=== PATIENT | male | born 1950 | race African-American/Black ===

== ENCOUNTER 2023-05-01 12:41 | Outpatient (AMB) | payer MEDICARE, OTHER, SELFPAY ==
--- NOTE | 2023-05-01 12:59 | MHC.PC.OV ---
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: No Allergies house dust Allergy (Mild, Verified 05/01/23 13:37) Itching bees Allergy (Intermediate, Uncoded 05/01/23 13:37) Itching pollen Allergy (Intermediate, Uncoded 05/01/23 13:37) Itching Medication List - Last Reconciled 05/01/23 by Angelita Olsen MD atenolol 50 mg PO DAILY epinephrine 0.3 mg IM ONCE PRN finasteride 5 mg PO DAILY nifedipine ER 90 mg PO DAILY tamsulosin 0.8 mg PO DAILY Tobacco use date assessed: 05/01/23 Fall risk assessment: No Falls in past year Last assessed Fall Risk: 05/01/23 Dental Screening Dental Screen Date: 05/01/23 Did you have a dental visit in the last 12 months?: Yes Did you have a dental problem in the last 6 months where you did not have access to dental care?: No Was dental information given to patient?: Patient has dentist 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 lives in [place]. was in [place] for years .bloating sensation , diverticulosis, hiatal hernia, esophageal narrowing. had blood work 04/2023 . complains of L leg having L foot numbness ? levaquin. . Hx of Lumbar and L hip MRI-? bulging disc, noted high TG. [facility] Medical History (Updated 05/01/23 @ 14:30 by Angelita Olsen MD) Diverticulosis Perforated appendix Social History Housing: Condominium Patient Tobacco Use Status: Current everyday Tobacco user Cigarette Packs Per Day: 0.5 service: No Current occupational status: retired Cognitive needs: No Hearing needs: No Vision needs: No Questionnaire PHQ-9 Over the last 2 weeks, how often have you been bothered by any of the following problems? 1. Little interest or pleasure in doing things: not at all 2. Feeling down, depressed, or hopeless: not at all 3. Trouble falling or staying asleep, or sleeping too much: not at all 4. Feeling tired or having little energy: not at all 5. Poor appetite or overeating: not at all 6. Feeling bad about yourself - or that you are a failure or have let yourself or your family down: not at all 7. Trouble concentrating on things, such as reading the newspaper or watching television: not at all 8. Moving or speaking so slowly that other people could have noticed. Or the opposite - being so fidgety or restless that you have been moving around a lot more than usual: not at all 9. Thoughts that you would be better off or of hurting yourself in some way: not at all Total score: 0 Depression Screening Interpretation: Negative Source: Developed by Drs. Sirnivas Moody, Angely Knox, Bryn Willard and colleagues, with an educational jose from [employer]. Thrive Questionnaire Date Thrive assessed: 05/01/23 I am a: Patient What is your living situation today?: I have a steady place to live Within the past 12 months, did the food you bought not last and you didn't have the money to get more?: Never true Within the past 12 months, did you worry whether your food would run out before you got money to buy more?: Never true Do you have trouble paying for medicines?: No Do you have trouble getting transportation to medical appointments?: No Do you have trouble paying your heating and electricity bill?: No Do you have trouble taking care of your child, family member or friend?: No Do you have trouble with day-to-day activities such as bathing, preparing meals, shopping, managing finances, etc.?: No Are you currently unemployed and looking for a job?: No Are you interested in more education?: No AUDIT C Alcohol Use Questionnaire (AUDIT-C) 1. How often do you have a drink containing alcohol?: 2-3 times a week 2. How many drinks containing alcohol do you have on a typical day when you are drinking?: 1 or 2 3. How often do you have six or more drinks on one occasion?: Never Total Score: 3 ERENDIRA-7 AMB Questionnaire ERENDIRA-7 Date ERENDIRA - 7 assessed: 09/08/23 Feeling nervous, anxious, or on edge: 0 = Not at all Not being able to stop or control worryin = Not at all Worrying too much about different things: 0 = Not at all Trouble relaxin = Not at all Being so restless that it is hard to sit still: 0 = Not at all Becoming easily annoyed or irritable: 0 = Not at all Feeling afraid as if something awful might happen: 0 = Not at all Total ERENDIRA-7 score (0-4 normal; 5-9 mild; 10-14 moderate; 15-21 severe): 0 Source: Developed by Drs. Srinivas Moody, Angely Knox, Bryn Willard and colleagues, with an educational jose from [employer]. Physical exam (Primary Care) Vital Signs: Last Vital Signs Pulse 66 05/01/23 13:01 BP 130/72 05/01/23 13:01 Pulse Ox 100 05/01/23 13:01 Oxygen Delivery Method Room Air 05/01/23 13:01 BMI result Body Mass Index 29.3 Tobacco/Smoking Status: Tobacco use Status Tobacco use date assessed 05/01/23 05/01/23 13:01 Patient Tobacco Use Status Current everyday Tobacco 05/01/23 13:47 PHQ-9: PHQ-9 Score PHQ-9: Total score 0 05/01/23 13:47 Depression Screening Interpretation: Negative Thrive Assessment: Date of Thrive Assessment Date Thrive assessed 05/01/23 05/01/23 13:01 Const General: alert; No acute distress Eyes Conjunctivae: conjunctivae normal Resp Auscultation: clear to auscultation bilaterally Cardio Rate: regular rate Rhythm: regular rhythm GI Inspection: Yes normal to inspection Extrem General: Yes normal to inspection and No edema Assessment and Plan Assessment & Plan (1) Hypertension: Code(s): I10 - Essential (primary) hypertension Plan: Continue with blood pressure medication. Decrease salt intake and exercise continue with atenolol 50 mg once a day nifedipine 90 mg once a day (2) Overweight (BMI 25.0-29.9): Code(s): E66.3 - Overweight Plan: Diet and exercise (3) BPH (benign prostatic hyperplasia): Code(s): N40.0 - Benign prostatic hyperplasia without lower urinary tract symptoms Plan: Continue with finasteride and tamsulosin (4) Hiatal hernia: Code(s): K44.9 - Diaphragmatic hernia without obstruction or gangrene (5) Osteoarthritis of left hip: Comment: 06/2022 Code(s): M16.12 - Unilateral primary osteoarthritis, left hip (6) Lumbar degenerative disc disease: Comment: MRI done 06/2022 moderate L neural foraminal narrowing L5-S 1 crowding L L5 nerve root Code(s): M51.36 - Other intervertebral disc degeneration, lumbar region (7) Food allergy: Code(s): Z91.018 - Allergy to other foods (8) Elevated PSA: Code(s): R97.20 - Elevated prostate specific antigen [PSA] (9) Colonoscopy refused: Code(s): Z53.20 - Procedure and treatment not carried out because of patient's decision for unspecified reasons (10) Colon cancer screening: Code(s): Z12.11 - Encounter for screening for malignant neoplasm of colon Orders: Orders Heavy Metals Screen Blood Today Z91.018 - Allergy to other foods Comprehensive Met. Panel Today R97.20 - Elevated prostate specific antigen [PSA] Rast Allergen Today Z91.018 - Allergy to other foods PSA,Total (Free>4and<10) Today R97.20 - Elevated prostate specific antigen [PSA] Thyroid Stimulating Hormone Today R97.20 - Elevated prostate specific antigen [PSA] Free T4 (Free Thyroxine) Today R97.20 - Elevated prostate specific antigen [PSA] XR chest 2V Today I10 - Essential (primary) hypertension Referrals Urology Referral N40.0 - Benign prostatic hyperplasia without lower urinary tract symptoms, R97.20 - Elevated prostate specific antigen [PSA] Cologuard Test Z12.11 - Encounter for screening for malignant neoplasm of colon Medications: New epinephrine 0.3 mg (0.3 mL) IM ONCE PRN 2 ea 0RF anaphylaxis I10 - Essential (primary) hypertension Coding Level of Care Code New Pt Level 4 (64220) Diagnoses Hypertension I10 Overweight (BMI 25.0-29.9) E66.3 BPH (benign prostatic hyperplasia) N40.0 Hiatal hernia K44.9 Osteoarthritis of left hip M16.12 Lumbar degenerative disc disease M51.36 Food allergy Z91.018 Elevated PSA R97.20 Colonoscopy refused Z53.20 Colon cancer screening Z12.11
[2023-05-01 13:01] VITALS: BP 130/72; PULSE 66; O2SAT 100; BMI 29.3
== END 2023-05-01 14:48 | disposition home or self-care (01) ==
PROVIDERS: PCP Internal Medicine; Visit Provider Internal Medicine
DX: I10 Essential (primary) hypertension (principal); E66.3 Overweight; N40.0 Benign prostatic hyperplasia without lower urinary tract symptoms; Z91.018 Allergy to other foods; K44.9 Diaphragmatic hernia without obstruction or gangrene; M16.12 Unilateral primary osteoarthritis, left hip; M51.36 Other intervertebral disc degeneration, lumbar region; R97.20 Elevated prostate specific antigen [PSA]; Z53.20 Procedure and treatment not carried out because of patient's decision for unspecified reasons
CPT/HCPCS: 99204

== ENCOUNTER 2023-06-23 15:31 | Outpatient (AMB) | payer MEDICARE, OTHER, SELFPAY ==
--- NOTE | 2023-06-23 15:38 | A.OFFVIS_ITS ---
Intake Vital Signs 06/23/23 15:42 Height 5 ft 11 in Weight 212 lb BMI 29.6 BP 157/67 H Blood Pressure Location Lt brachial Position Sitting Pulse 60 Intake Visit Reasons: Other fecal abnormalities Intake Note: Patient new consult for other Fecal abnormalities. Pre Colonoscopy screening ??? Patient cc: constipation, abdominal bloating and some GERD. Cologuard was with blood. Patient was dx with Diverticulosis. 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 male here today for pre col onoscopy screening.? Patient was sent to us by his PCP.? Patient reports that he had colonoscopy in his 50s. Patient reports he did not had a great experience, prefers not to go for colonoscopy. However patient did have positive Cologuard. Reports to have multiple symptoms. Patient has postprandial abdominal bloating. Occasional constipation. Reports to have blood in the stool as well. Patient reports postprandial abdominal bloating specially when he eats peppers, onions. Denies history of gastrointestinal disease, colon polyps, or cancer.? Denies history of difficulty with sedation or anesthesia in the past.? Negative for history of sleep apnea.? Denies any history of cardiac, renal, pulmonary, or hepatic disease.?? No history of infectious? diseases like hepatitis A, B, C, HIV or tuberculosis.? Patient is not on any anticoagulation therapy. [facility] Medical History (Updated 05/18/23 @ 19:34 by Angelita Olsen MD) Diverticulosis Perforated appendix [facility] Patient Tobacco Use Status: Current everyday Tobacco user Cigarette Packs Per Day: 0.5 service: No Current occupational status: retired Cognitive needs: No Hearing needs: No Vision needs: No Review of Systems Const Denies weight gain and Denies weight loss ENT Reports no additional complaints, Denies dysphagia and Denies odynophagia Card Reports no additional complaints Resp Reports no additional complaints GI Denies abdominal pain, Denies belching, Denies melena, Reports bloating (Postprandial), Reports hematochezia, Denies change in bowel habits, Reports constipation, Denies dysphagia, Denies excessive flatus, Denies dyspepsia, R eports heartburn (Occasional), Denies diarrhea, Denies loose stools, Denies nausea, Denies odynophagia and Denies vomiting Reports no additional complaints Musc Reports no additional complaints Neuro Reports no additional complaints Psych Reports no additional complaints Endo Reports no additional complaints Physical Exam Vital Signs: Last Vital Signs Pulse 60 06/23/23 15:42 BP 157/67 H 06/23/23 15:42 BMI result Body Mass Index 29.6 Assessment & Plan Assessment & Plan (1) Positive colorectal cancer screening using Cologuard test: Code(s): R19.5 - Other fecal abnormalities (2) Colon cancer screening: Code(s): Z12.11 - Encounter for screening for malignant neoplasm of colon (3) Colonoscopy refused: Code(s): Z53.20 - Procedure and treatment not carried out because of patient's decision for unspecified reasons (4) Rectal bleed: Code(s): K62.5 - Hemorrhage of anus and rectum (5) Diverticulosis: Code(s): K57.90 - Diverticulosis of intestine, part unspecified, without perforation or abscess without bleeding (6) Constipation: Code(s): K59.00 - Constipation, unspecified Qualifiers: Constipation type: slow transit constipation Qualified Code(s): K59.01 - Slow transit constipation Plan Patient will going get blood work done. Will check iron profile, vitamin B12 and folate as well as vitamin-D levels. Patient will start taking MiraLax and Colace. Can use Proctosol as needed. Discussed with patient the importance of colorectal screening. Patient had positive Cologuard because he has blood in his stools. Long discussion with patient about going for colonoscopy. Patient does admit that he had unpleasant experience when he had his colonoscopy in his 50s. Patient reports that he will think about going for colonoscopy. Postpra ndial abdominal bloating with certain food. Low FODMAP diet discussed with patient. List of food recommended as well as list of food to avoid given to patient. I will see patient in 5 months, sooner on as needed basis. He is agreeable to this plan and verbalizes understanding of instructions. He was given the opportunity to ask questions and all questions answered. Thank you for allowing me to participate in his care Orders: Orders IRON PROFILE Today D64.9 - Anemia, unspecified Vitamin B12 and Folate Today R19.7 - Diarrhea, unspecified Vitamin D 25-OH (D2 and D3) Today E55.9 - Vitamin D deficiency, unspecified Medications: New polyethylene glycol 3350 (Miralax) 17 grams PO DAILY 510 grams 2RF hydrocortisone 2.5% (Proctosol HC) 1 appl UT BID-QID PRN 30 grams 2RF hemorrhoids K64.9 - Unspecified hemorrhoids docusate sodium 100 mg PO DAILY 30 caps 3RF K59.00 - Constipation, unspecified Coding Level of Care Code New Pt Level 4 (65030) Diagnoses Positive colorectal cancer screening using Cologuard test R19.5 Colon cancer screening Z12.11 Colonoscopy refused Z53.20 Rectal bleed K62.5 Diverticulosis K57.90 Slow transit constipation K59.01 Constipation type: slow transit constipation Time Spent (min) 45 Comment 30 minutes spent with patient and additional 15 minutes spent reviewing his records
[2023-06-23 15:42] VITALS: BP 157/67; PULSE 60; BMI 29.6
== END 2023-06-23 16:26 | disposition home or self-care (01) ==
PROVIDERS: PCP Internal Medicine; Visit Provider Nurse Practitioner Family
DX: R19.5 Other fecal abnormalities (principal); Z12.11 Encounter for screening for malignant neoplasm of colon; Z53.20 Procedure and treatment not carried out because of patient's decision for unspecified reasons; K62.5 Hemorrhage of anus and rectum; K57.90 Diverticulosis of intestine, part unspecified, without perforation or abscess without bleeding; K59.01 Slow transit constipation
CPT/HCPCS: 99204

== ENCOUNTER → 2023-06-23 15:31 | Outpatient (BNVA) | payer MEDICARE, OTHER, SELFPAY | PROVIDERS: PCP Internal Medicine; Visit Provider Nurse Practitioner Family | DX: Z12.11 Encounter for screening for malignant neoplasm of colon (principal); Z53.20 Procedure and treatment not carried out because of patient's decision for unspecified reasons; K62.5 Hemorrhage of anus and rectum; K57.90 Diverticulosis of intestine, part unspecified, without perforation or abscess without bleeding; K59.01 Slow transit constipation; R19.5 Other fecal abnormalities | CPT/HCPCS: 99202 ==

== ENCOUNTER 2023-08-03 15:25 | Outpatient (AMB) | payer MEDICARE, OTHER, SELFPAY ==
--- NOTE | 2023-08-03 15:26 | A.OFFPC_ITS ---
Intake Visit Reasons: Cold Symptoms Allergies house dust Allergy (Mild, Verified 08/03/23 15:26) Itching bees Allergy (Intermediate, Uncoded 08/03/23 15:26) Itching pollen Allergy (Intermediate, Uncoded 08/03/23 15:26) Itching Tobacco use date assessed: 05/01/23 Fall risk assessment: No Falls in past year Last assessed Fall Risk: 08/03/23 Dental Screening Dental Screen Date: 08/03/23 Did you have a dental visit in the last 12 months?: No Did you have a dental problem in the last 6 months where you did not have access to dental care?: No Was dental information given to patient?: Patient has dentist HPI Cold Symptoms HPI Details 72-year-old overweight male with hyperte nsion BPH lumbar degenerative disc disease calling for an acute problem review of the notes follow us up with urology for markedly elevated PSA stable MRI was not stable. cough, chills, 3 days, no sore throat, takes mucinex, , no sinus problem states last year also patient was treated for bronchitis and was given steroids. Discussed with the patient that I do not like giving steroids as this suppresses the immune system [facility] Medical History (Updated 08/03/23 @ 19:12 by Angelita Olsen MD) Diverticulosis Perforated appendix Social History Housing: Condominium Patient Tobacco Use Status: Current everyday Tobacco user Tobacco use type: Cigarette Cigarette Packs Per Day: 0.5 e-Cigarette/Vaping Use: Never Used Second Hand Smoke Exposure: Yes service: No Current occupational status: retired Cognitive needs: No Hearing needs: No Vision needs: No Questionnaire PHQ-9 Over the last 2 weeks, how often have you been bothered by any of the following problems? 1. Little interest or pleasure in doing things: not at all 2. Feeling down, depressed, or hopeless: not at all 3. Trouble falling or staying asleep, or sleeping too much: not at all 4. Feeling tired or having little energy: not at all 5. Poor appetite or overeating: not at all 6. Feeling bad about yourself - or that you are a failure or have let yourself or your family down: not at all 7. Trouble concentrating on things, such as reading the newspaper or watching television: not at all 8. Moving or speaking so slowly that other people could have noticed. Or the opposite - being so fidgety or restless that you have been moving around a lot more than usual: not at all 9. Thoughts that you would be better off or of hurting yourself in some way: not at all Total score: 0 Depression Screening Interpretation: Negative Depression Screening Done: Yes Source: Developed by Drs. Srinivas Moody, Angely Knox, Bryn Willard and colleagues, with an educational jose from [employer]. Thrive Questionnaire Date Thrive assessed: 05/01/23 AUDIT C Alcohol Use Questionnaire (AUDIT-C) 1. How often do you have a drink containing alcohol?: 2-3 times a week 2. How many drinks containing alcohol do you have on a typical day when you are drinking?: 1 or 2 3. How often do you have six or more drinks on one occasion?: Never Total Score: 3 ERENDIRA-7 AMB Questionnaire ERENDIRA-7 Date ERENDRIA - 7 assessed: 05/01/23 Source: Developed by Drs. Srinivas Moody, Angely Knox, Bryn Willard and colleagues, with an educational jose from [employer]. Physical exam (Primary Care) Tobacco/Smoking Status: Tobacco use Status Tobacco use date assessed 05/01/23 08/03/23 15:27 Patient Tobacco Use Status Current everyday Tobacco 08/03/23 15:27 Tobacco use type Cigarette 08/03/23 15:27 e-Cigarette/Vaping Use Never Used 08/03/23 15:27 PHQ-9: PHQ-9 Score PHQ-9: Total score 0 08/03/23 15:27 Depression Screening Interpretation: Negative Thrive Assessment: Date of Thrive Assessment Date Thrive assessed 05/01/23 08/03/23 15:27 Telehealth Telehealth Location of provider rendering services: practice address Location of patient: address on file Patient Identification confirmed using: Name, : Yes Telehealth method: voice only Patient verbally consented to treatment: Yes Patient verbally consented to billing insurance company: Yes Patient informed of any privacy concerns related to visit: Yes Minutes spent on Phone/Video with Pt.: 15 Assessment and Plan Assessment & Plan (1) Upper respiratory tract infection: Code(s): J06.9 - Acute upper respiratory infection, unspecified Plan: Conservative management. Most often either an allergy problem or a viral infection. Advised to increase oral fluids and to take symptomatic treatment. Mucinex for productive cough. Delsym for dry cough. (2) Hypertension: Code(s): I10 - Essential (primary) hypertension Plan: Continue with blood pressure medication. Decrease salt intake and exercise blood work requested. Patient on atenolol 50 mg once a day and nifedipine 90 mg once a day Orders: Orders Complete Blood Count Auto Diff Today I10 - Essential (primary) hypertension Free T4 (Free Thyroxine) Today I10 - Essential (primary) hypertension Vitamin B12 and Folate Today I10 - Essential (primary) hypertension Prostate Specific Antigen Scr Today I10 - Essential (primary) hypertension Comprehensive Met. Panel Today I10 - Essential (primary) hypertension Thyroid Stimulating Hormone Today I10 - Essential (primary) hypertension Lipid Panel Today E78.00 - Pure hypercholesterolemia, unspecified, I10 - Essential (primary) hypertension Coding Level of Care Code Tele Est Pt Level 3 (74710) Diagnoses Upper respiratory tract infection J06.9 Hypertension I10
== END 2023-08-03 15:40 | disposition home or self-care (01) ==
LOC: HO.HMGH 15:25
PROVIDERS: PCP Internal Medicine; Visit Provider Internal Medicine
DX: J06.9 Acute upper respiratory infection, unspecified (principal); I10 Essential (primary) hypertension
CPT/HCPCS: 99442

== ENCOUNTER 2023-08-20 13:20 | Outpatient (AMB) | payer MEDICARE, OTHER, SELFPAY ==
[2023-08-20 13:24] VITALS: BP 146/82; PULSE 64; O2SAT 97; BMI 29.8
--- NOTE | 2023-08-20 13:24 | A.OFFPC_ITS ---
Vital Signs 08/20/23 13:24 08/20/23 13:56 Height 5 ft 11 in Weight 214 lb 0.2 oz BMI 29.8 BP 146/82 H 132/70 Blood Pressure Location Lt brachial Lt brachial Position Sitting Sitting Pulse 64 Pulse Source Pulse Oximeter Pulse Oximetry (%) 97 Oxygen Delivery Method Room Air Intake Visit Reasons: Annual exam Intake Note: Patient is here today for a physical. Allergies house dust Allergy (Mild, Verified 08/20/23 13:27) Itching bees Allergy (Intermediate, Uncoded 08/20/23 13:27) Itching pollen Allergy (Intermediate, Uncoded 08/20/23 13:27) Itching Medication List - Last Reconciled 08/20/23 by Angelita Olsen MD atenolol 50 mg PO DAILY docusate sodium 100 mg PO DAILY epinephrine 0.3 mg (0.3 mL) IM ONCE PRN finasteride 5 mg PO DAILY hydrocortisone 2.5% (Proctosol HC) 1 appl CO BID-QID PRN nifedipine ER 90 mg PO DAILY polyethylene glycol 3350 (Miralax) 17 grams PO DAILY tamsulosin 0.8 mg (2 x 0.4 mg) PO DAILY Tobacco use date assessed: 08/20/23 Fall risk assessment: No Falls in past year Last assessed Fall Risk: 08/20/23 Dental Screening Dental Screen Date: 08/20/23 Did you have a dental visit in the last 12 months?: Yes Did you have a dental problem in the last 6 months where you did not have access to dental care?: No Was dental information given to patient?: Patient has dentist HPI Annual exam HPI Details 72-year-old overweight male with a histo ry of hypertension BPH lumbar degenerative disc disease hypercholesterolemia and elevated PSA last seen in July 2023 coming in for physical exam. Past patient has a positive colorectal cancer screening test using Cologuard test.. Review of the notes July 2022 had blood work done normal blood sugar normal vitamin B12 normal kidney function sodium potassium is good liver function is normal normal folic acid, iron prostate is elevated at 14.3. Cholesterol is elevated with an LDL of 115 but triglyceride of 1277 thyroid is normal no anemia platelet count is good. Patient has seen the restaurant crew person May 2023. for the PSA 0- seen urology - decline biopsy and MRI done no significant - will ff up with urology [facility] Medical History (Updated 08/20/23 @ 14:04 by Angelita Olsen MD) Detached retina Colon cancer screening Diverticulosis Surgical History (Updated 08/20/23 @ 14:04 by Angelita Olsen MD) History of cataract surgery History of appendectomy Perforated appendix Social History (Updated 08/20/23 @ 14:05 by Angelita Olsen MD) [facility] Alcohol intake: current Comment: daily 2 drinks vodka martini Patient Tobacco Use Status: Current everyday Tobacco user Tobacco use type: Cigarette Cigarette Packs Per Day: 0.5 Years Smoked: 1/2 pack a day since 14 years old e-Cigarette/Vaping Use: Never Used Second Hand Smoke Exposure: Yes service: No Current occupational status: retired Cognitive needs: No Hearing needs: No Vision needs: No Questionnaire PHQ-9 Over the last 2 weeks, how often have you been bothered by any of the following problems? 1. Little interest or pleasure in doing things: not at all 2. Feeling down, depressed, or hopeless: not at all 3. Trouble falling or staying asleep, or sleeping too much: not at all 4. Feeling tired or having little energy: not at all 5. Poor appetite or overeating: not at all 6. Feeling bad about yourself - or that you are a failure or have let yourself or your family down: not at all 7. Trouble concentrating on things, such as reading the newspaper or watching television: not at all 8. Moving or speaking so slowly that other people could have noticed. Or the opposite - being so fidgety or restless that you have been moving around a lot more than usual: not at all 9. Thoughts that you would be better off or of hurting yourself in some way: not at all Total score: 0 Depression Screening Interpretation: Negative Depression Screening Done: Yes Source: Developed by Drs. Srinivas Moody, Angely Knox, Bryn Willard and colleagues, with an educational jose from [employer]. Thrive Questionnaire Date Thrive assessed: 08/20/23 I am a: Patient What is your living situation today?: I have a steady place to live Within the past 12 months, did the food you bought not last and you didn't have the money to get more?: Never true Within the past 12 months, did you worry whether your food would run out before you got money to buy more?: Never true Do you have trouble paying for medicines?: No Do you have trouble getting transportation to medical appointments?: No Do you have trouble paying your heating and electricity bill?: No Do you have trouble taking care of your child, family member or friend?: No Do you have trouble with day-to-day activities such as bathing, preparing meals, shopping, managing finances, etc.?: No Are you currently unemployed and looking for a job?: No Are you interested in more education?: No AUDIT C Alcohol Use Questionnaire (AUDIT-C) 1. How often do you have a drink containing alcohol?: 2-3 times a week 2. How many drinks containing alcohol do you have on a typical day when you are drinking?: 1 or 2 3. How often do you have six or more drinks on one occasion?: Never Total Score: 3 ERENDIRA-7 AMB Questionnaire EREDNIRA-7 Date ERENDIRA - 7 assessed: 08/20/23 Feeling nervous, anxious, or on edge: 0 = Not at all Not being able to stop or control worryin = Not at all Worrying too much about different things: 0 = Not at all Trouble relaxin = Not at all Being so restless that it is hard to sit still: 0 = Not at all Becoming easily annoyed or irritable: 0 = Not at all Feeling afraid as if something awful might happen: 0 = Not at all Total ERENDIRA-7 score (0-4 normal; 5-9 mild; 10-14 moderate; 15-21 severe): 0 Source: Developed by Drs. Srinivas Moody, Angely Knox, Bryn Willard and colleagues, with an educational jose from [employer]. Review of Systems Const Denies poor appetite and Denies weakness Eyes Denies no additional complaints ENT Reports Normal hearing present, Denies dizziness, Denies nasal congestion, Denies tinnitus and Denies sore throat Card Denies chest pain, Denies syncope, Denies rapid heart rate and Denies dyspnea Resp Denies cough and Denies dyspnea GI Denies change in stool character, Reports constipation, Denies diarrhea, Denies nausea and Denies vomiting Denies dysuria and Denies urinary frequency Neuro Reports Normal hearing present, Denies confusion, Denies dizziness, Denies syncope and Denies weakness Psych Denies confusion Physical exam (Primary Care) Vital Signs: Last Vital Signs Pulse 64 08/20/23 13:24 BP 146/82 H 08/20/23 13:24 Pulse Ox 97 08/20/23 13:24 Oxygen Delivery Method Room Air 08/20/23 13:24 BMI result Body Mass Index 29.8 Tobacco/Smoking Status: Tobacco use Status Tobacco use date assessed 08/20/23 08/20/23 13:29 Patient Tobacco Use Status Current everyday Tobacco 08/20/23 13:25 Tobacco use type Cigarette 08/20/23 13:25 e-Cigarette/Vaping Use Never Used 08/20/23 13:25 PHQ-9: PHQ-9 Score PHQ-9: Total score 0 08/20/23 13:29 Depression Screening Interpretation: Negative Thrive Assessment: Date of Thrive Assessment Date Thrive assessed 08/20/23 08/20/23 13:29 Const General: No confusion Orientation/consciousness: No confusion HENMT Head: Yes normocephalic Ears: external ears normal and TM's normal bilaterally Face and sinus: Yes normal facial exam Mouth: moist mucous membranes Throat: Yes tonsils normal Eyes Conjunctivae: conjunctivae normal Pupils: Equal, round and reactive pupils present and Pupil accommodation reflex normal Direct Ophthalmoscopy: normal light reflex Neck Neck: No lymphadenopathy Thyroid: Thyroid normal Chest Chest palpation & inspection: normal inspection of the chest Resp Effort & Inspection: normal respiratory effort and no audible wheezes Auscultation: clear to auscultation bilaterally, no crackles, no wheezes and lung sounds not diminished Cardio Rate: regular rate Rhythm: regular rhythm Peripheral pulses: radial pulses present and dorsalis pedis present GI Other: cologuard pos Palpation (GI): no masses Auscultation: normal bowel sounds and normoactive bowel sounds Rectal Exam - Male: Yes deferred Male General Exam: Yes normal external exam Skin General skin exam: no rashes or lesions noted Rashes: no rashes Neuro General: No confusion Cranial nerves: Yes Equal, round and reactive pupils present and Yes Normal hearing present Cognition (Neuro): normal cognition Gait exam (Neuro): Normal gait present Motor exam (neuro): 5/5 motor strength present throughout Deep tendon reflexes (DTR's): Right brachioradialis reflex intensity grade: 2+, Left brachioradialis reflex intensity grade: 2+, Right patellar reflex intensity grade: 2+ and Left patellar reflex intensity grade: 2+ Extrem General: No edema Assessment and Plan Assessment & Plan (1) Annual physical exam: Code(s): Z00.00 - Encounter for general adult medical examination without abnormal findings (2) Positive colorectal cancer screening using Cologuard test: Code(s): R19.5 - Other fecal abnormalities Plan: Patient has met with the restaurant crew person and will think about colonoscopy (3) Elevated PSA: Code(s): R97.20 - Elevated prostate specific antigen [PSA] Plan: Discussed with the patient elevated PSA (4) Overweight (BMI 25.0-29.9): Code(s): E66.3 - Overweight Plan: Diet and exercise (5) Hypertension: Code(s): I10 - Essential (primary) hypertension Plan: Continue with blood pressure medication. Decrease salt intake and exercise patient takes nifedipine 90 mg once a day and atenolol 50 mg once a day (6) BPH (benign prostatic hyperplasia): Code(s): N40.0 - Benign prostatic hyperplasia without lower urinary tract symptoms Plan: Patient on tamsulosin and finasteride (7) Lumbar degenerative disc disease: Comment: MRI done 06/2022 moderate L neural foraminal narrowing L5-S 1 crowding L L5 nerve root Code(s): M51.36 - Other intervertebral disc degeneration, lumbar region Plan: Continue to be active try to lose the weight, Orders: Orders Lipid Panel 6 Months E78.00 - Pure hypercholesterolemia, unspecified, E78.1 - Pure hyperglyceridemia Comprehensive Met. Panel 6 Months E78.1 - Pure hyperglyceridemia Coding Level of Care Code Est Pt Prev Care >65y(32510) Diagnoses Annual physical exam Z00.00 Positive colorectal cancer screening using Cologuard test R19.5 Elevated PSA R97.20 Overweight (BMI 25.0-29.9) E66.3 Hypertension I10 BPH (benign prostatic hyperplasia) N40.0 Lumbar degenerative disc disease M51.36
[2023-08-20 13:56] VITALS: BP 132/70
== END 2023-08-20 14:33 | disposition home or self-care (01) ==
PROVIDERS: PCP Internal Medicine; Visit Provider Internal Medicine
DX: Z00.00 Encounter for general adult medical examination without abnormal findings (principal); R19.5 Other fecal abnormalities; R97.20 Elevated prostate specific antigen [PSA]; E66.3 Overweight; I10 Essential (primary) hypertension; N40.0 Benign prostatic hyperplasia without lower urinary tract symptoms; M51.36 Other intervertebral disc degeneration, lumbar region
CPT/HCPCS: 99397

== ENCOUNTER 2023-09-08 13:23 | Outpatient (AMB) | payer MEDICARE, OTHER, SELFPAY ==
--- NOTE | 2023-09-08 13:24 | MHC.PC.OV ---
Intake Visit Reasons: Persistent Cough Newcomer Hostess Required: No Allergies house dust Allergy (Mild, Verified 09/08/23 13:24) Itching bees Allergy (Intermediate, Uncoded 09/08/23 13:24) Itching pollen Allergy (Intermediate, Uncoded 09/08/23 13:24) Itching Medication List - Last Reconciled 09/08/23 by Angelita Olsen MD atenolol 50 mg PO DAILY azithromycin (Zithromax) For 250 mg dose pack: take 500 mg today (day 1), then 250 mg for 4 days (days 2-5) PO docusate sodium 100 mg PO DAILY epinephrine 0.3 mg (0.3 mL) IM ONCE PRN finasteride 5 mg PO DAILY hydrocortisone 2.5% (Proctosol HC) 1 appl [place] BID-QID PRN nifedipine ER 90 mg PO DAILY polyethylene glycol 3350 (Miralax) 17 grams PO DAILY tamsulosin 0.8 mg (2 x 0.4 mg) PO DAILY Tobacco use date assessed: 09/08/23 Fall risk assessment: No Falls in past year Last assessed Fall Risk: 09/08/23 HPI Persistent Cough HPI Details 72-year-old overweight male with hypertension BPH lumbar degenerative disc disease last seen in 08/20/2023 for physical exam. Patient had blood work 10/13/2022 showing normal blood count had lead blood screen that is elevated, cadmium, elevated PSA high triglyceride. Patient is coming in for Telehealth [facility] Medical History (Updated 09/08/23 @ 13:58 by Angelita Olsen MD) Detached retina Colon cancer screening Diverticulosis Surgical History (Updated 08/20/23 @ 14:04 by Angelita Olsen MD) History of cataract surgery History of appendectomy Perforated appendix Social History (Updated 08/20/23 @ 14:05 by Angelita Olsen MD) [facility] Alcohol intake: current Comment: daily 2 drinks vodka martini Patient Tobacco Use Status: Current everyday Tobacco user Tobacco use type: Cigarette Cigarette Packs Per Day: 0.5 Years Smoked: 1/2 pack a day since 14 years old e-Cigarette/Vaping Use: Never Used Second Hand Smoke Exposure: Yes service: No Current occupational status: retired Cognitive needs: No Hearing needs: No Vision needs: No Questionnaire PHQ-9 Over the last 2 weeks, how often have you been bothered by any of the following problems? 1. Little interest or pleasure in doing things: not at all 2. Feeling down, depressed, or hopeless: not at all 3. Trouble falling or staying asleep, or sleeping too much: not at all 4. Feeling tired or having little energy: not at all 5. Poor appetite or overeating: not at all 6. Feeling bad about yourself - or that you are a failure or have let yourself or your family down: not at all 7. Trouble concentrating on things, such as reading the newspaper or watching television: not at all 8. Moving or speaking so slowly that other people could have noticed. Or the opposite - being so fidgety or restless that you have been moving around a lot more than usual: not at all 9. Thoughts that you would be better off or of hurting yourself in some way: not at all Total score: 0 Depression Screening Interpretation: Negative Depression Screening Done: Yes Source: Developed by Drs. Srinivas Moody, Angely Knox, Bryn Willard and colleagues, with an educational jose from [employer]. Thrive Questionnaire Date Thrive assessed: 09/08/23 I am a: Patient What is your living situation today?: I have a steady place to live Within the past 12 months, did the food you bought not last and you didn't have the money to get more?: Never true Within the past 12 months, did you worry whether your food would run out before you got money to buy more?: Never true Do you have trouble paying for medicines?: No Do you have trouble getting transportation to medical appointments?: No Do you have trouble paying your heating and electricity bill?: No Do you have trouble taking care of your child, family member or friend?: No Do you have trouble with day-to-day activities such as bathing, preparing meals, shopping, managing finances, etc.?: No Are you currently unemployed and looking for a job?: No Are you interested in more education?: No AUDIT C Alcohol Use Questionnaire (AUDIT-C) 1. How often do you have a drink containing alcohol?: Never 2. How many drinks containing alcohol do you have on a typical day when you are drinking?: 1 or 2 3. How often do you have six or more drinks on one occasion?: Never Total Score: 0 ERENDIRA-7 AMB Questionnaire ERENDIRA-7 Date ERENDIRA - 7 assessed: 09/08/23 Feeling nervous, anxious, or on edge: 0 = Not at all Not being able to stop or control worryin = Not at all Worrying too much about different things: 0 = Not at all Trouble relaxin = Not at all Being so restless that it is hard to sit still: 0 = Not at all Becoming easily annoyed or irritable: 0 = Not at all Feeling afraid as if something awful might happen: 0 = Not at all Total ERENDIRA-7 score (0-4 normal; 5-9 mild; 10-14 moderate; 15-21 severe): 0 Source: Developed by Drs. Srinivas Moody, Angely Knox, Bryn Willard and colleagues, with an educational jose from [employer]. Physical exam (Primary Care) Tobacco/Smoking Status: Tobacco use Status Tobacco use date assessed 09/08/23 09/08/23 13:26 Patient Tobacco Use Status Current everyday Tobacco 09/08/23 13:26 Tobacco use type Cigarette 09/08/23 13:26 e-Cigarette/Vaping Use Never Used 09/08/23 13:26 PHQ-9: PHQ-9 Score PHQ-9: Total score 0 09/08/23 13:26 Depression Screening Interpretation: Negative Thrive Assessment: Date of Thrive Assessment Date Thrive assessed 09/08/23 09/08/23 13:26 Telehealth Telehealth Location of provider rendering services: practice address Location of patient: address on file Patient Identification confirmed using: Name, : Yes Telehealth method: voice only ([phone] // home phone ) Patient verbally consented to treatment: Yes Patient verbally consented to billing insurance company: Yes Patient informed of any privacy concerns related to visit: Yes Assessment and Plan Assessment & Plan (1) Elevated PSA: Code(s): R97.20 - Elevated prostate specific antigen [PSA] Plan: seeing Urology and was told no prostate cancer. (2) Elevated blood lead level: Code(s): R78.71 - Abnormal lead level in blood Plan: discussed about heavy metals in the blood - lead and cadmium.. For the cadmium it is normal value for people smoke. Patient admits to the 1 asking for the blood work but discussed with the patient that not really sure what to do with this. (3) Acute bronchitis: Code(s): J20.9 - Acute bronchitis, unspecified Plan: Increase oral fluids and antibiotics sent. Medications: New azithromycin (Zithromax) For 250 mg dose pack: take 500 mg today (day 1), then 250 mg for 4 days (days 2-5) PO 6 tabs 0RF J20.9 - Acute bronchitis, unspecified Coding Level of Care Code Tele Est Pt Level 4 (79269) Diagnoses Elevated PSA R97.20 Elevated blood lead level R78.71 Acute bronchitis J20.9
== END 2023-09-08 14:35 | disposition home or self-care (01) ==
LOC: HO.HMGH 13:23
PROVIDERS: PCP Internal Medicine; Visit Provider Internal Medicine
DX: J20.9 Acute bronchitis, unspecified (principal); R78.71 Abnormal lead level in blood; R97.20 Elevated prostate specific antigen [PSA]
CPT/HCPCS: 99442

== ENCOUNTER 2023-10-07 14:50 | Outpatient (AMB) | payer MEDICARE, OTHER, SELFPAY ==
[2023-10-07 15:01] VITALS: BP 132/78; PULSE 92; O2SAT 95; BMI 30.1
--- NOTE | 2023-10-07 15:01 | A.OFFPC_ITS ---
Vital Signs 10/07/23 15:01 Height 5 ft 11 in Weight 216 lb BMI 30.1 BP 132/78 Blood Pressure Location Lt brachial Position Sitting Pulse 92 Pulse Source Pulse Oximeter Pulse Oximetry (%) 95 Oxygen Delivery Method Room Air Intake Visit Reasons: Cold Symptoms - Per Dr Olsen Lead Enterprise Architect Required: No Allergies house dust Allergy (Mild, Verified 10/07/23 15:01) Itching bees Allergy (Intermediate, Uncoded 10/07/23 15:01) Itching pollen Allergy (Intermediate, Uncoded 10/07/23 15:01) Itching Tobacco use date assessed: 10/07/23 Fall risk assessment: No Falls in past year Last assessed Fall Risk: 10/07/23 HPI Cold Symptoms - Per Dr Olsen HPI Details Rolled obese male with hypertension, BPH lumbar degenerative disc disease elevated PSA hypertriglyceridemia recently had a positive colorectal cancer screening and was referred to Gastroenterology. Patient does have a follow-up with Gastroenterology. 07/2023 cough, nasal congestion, mucus, myalgia,no fevers, apetitte noted to increased- seen 08/2023 treated with z magi with no resolution. patient feels congested in the ear. But does admit that the cough is getting better. Patient states whitish discharge from coughing but nasal discharge yellowish. [facility] Medical History (Updated 10/07/23 @ 16:44 by Angelita Olsen MD) Detached retina Colon cancer screening Diverticulosis Surgical History (Updated 08/20/23 @ 14:04 by Angelita Olsen MD) History of cataract surgery History of appendectomy Perforated appendix Social History (Updated 08/20/23 @ 14:05 by Angelita Olsen MD) Housing: Condominium Alcohol intake: current Comment: daily 2 drinks robert greer Patient Tobacco Use Status: Current everyday Tobacco user Tobacco use type: Cigarette Cigarette Packs Per Day: 0.5 Years Smoked: 1/2 pack a day since 14 years old e-Cigarette/Vaping Use: Never Used Second Hand Smoke Exposure: Yes service: No Current occupational status: retired Cognitive needs: No Hearing needs: No Vision needs: No Questionnaire Thrive Questionnaire Date Thrive assessed: 09/08/23 AUDIT C Alcohol Use Questionnaire (AUDIT-C) 1. How often do you have a drink containing alcohol?: Never 2. How many drinks containing alcohol do you have on a typical day when you are drinking?: 1 or 2 3. How often do you have six or more drinks on one occasion?: Never Total Score: 0 ERENDIRA-7 AMB Questionnaire ERENDIRA-7 Date ERENDIRA - 7 assessed: 09/08/23 Source: Developed by Drs. Srinivas Moody, Angely Knox, Bryn Willard and colleagues, with an educational jose from [employer]. Physical exam (Primary Care) Vital Signs: Last Vital Signs Pulse 92 10/07/23 15:01 BP 132/78 10/07/23 15:01 Pulse Ox 95 10/07/23 15:01 Oxygen Delivery Method Room Air 10/07/23 15:01 BMI result Body Mass Index 30.1 Tobacco/Smoking Status: Tobacco use Status Tobacco use date assessed 10/07/23 10/07/23 15:02 Patient Tobacco Use Status Current everyday Tobacco 10/07/23 15:02 Tobacco use type Cigarette 10/07/23 15:02 e-Cigarette/Vaping Use Never Used 10/07/23 15:02 Thrive Assessment: Date of Thrive Assessment Date Thrive assessed 09/08/23 10/07/23 15:02 Assessment and Plan Assessment & Plan (1) Cough: Code(s): R05.9 - Cough, unspecified Plan: will do PFT as the cough has been lingering for more than a month now.. Discussed about other causes of chronic cough which are allergies, asthma and reflux problem (2) Nasal congestion: Code(s): R09.81 - Nasal congestion Plan: Discussed with the patient that the nasal spray will help with the nasal congestion as well as year feeding block. (3) Diarrhea: Code(s): R19.7 - Diarrhea, unspecified Plan: concern that Gastroenterology has advised to take Miralax and patient is having diarrhea and did a call and was told [facility]- will do blood work as patient complains of myalgia (4) Positive colorectal cancer screening using Cologuard test: Code(s): R19.5 - Other fecal abnormalities Plan: Patient has a schedule with Gastroenterology Orders: Orders Comprehensive Met. Panel Today R05.9 - Cough, unspecified Thyroid Stimulating Hormone Today R05.9 - Cough, unspecified Magnesium Today R05.9 - Cough, unspecified PFT pulmonary function test Today R05.9 - Cough, unspecified Complete Blood Count Auto Diff Today R05.9 - Cough, unspecified Medications: New fluticasone propionate 50 mcg/actuation (Flonase Allergy Relief) administer into each nostril 2 sprays intranasal DAILY 16 grams 1RF R09.81 - Nasal congestion Coding Level of Care Code Est Pt Level 4 (34136) Diagnoses Cough R05.9 Nasal congestion R09.81 Diarrhea R19.7 Positive colorectal cancer screening using Cologuard test R19.5
== END 2023-10-07 16:53 | disposition home or self-care (01) ==
PROVIDERS: PCP Internal Medicine; Visit Provider Internal Medicine
DX: R05.9 Cough, unspecified (principal); R09.81 Nasal congestion; R19.7 Diarrhea, unspecified; R19.5 Other fecal abnormalities
CPT/HCPCS: 99214

== ENCOUNTER 2023-11-11 13:03 | Outpatient (AMB) | payer MEDICARE, OTHER, SELFPAY ==
[2023-11-11 13:09] VITALS: BP 141/63; PULSE 77; BMI 30.1
--- NOTE | 2023-11-11 13:09 | A.OFFVIS_ITS ---
Intake Vital Signs 11/11/23 13:09 Height 5 ft 11 in Weight 215 lb 9.793 oz BMI 30.1 BP 141/63 H Blood Pressure Location Lt brachial Position Sitting Pulse 77 Pulse Source Pulse Oximeter Intake Visit Reasons: follow up labs Intake Note: Pt presents to the office today for a follow up for labs. Pt states he is feeling okay and denies any GI concerns at this time. Pt states he made some dietary changes which has helped. Allergies house dust Allergy (Mild, Verified 11/11/23 13:11) Itching bees Allergy (Intermediate, Uncoded 11/11/23 13:11) Itching pollen Allergy (Intermediate, Uncoded 11/11/23 13:11) Itching HPI follow up labs HPI Details LAST VISIT Positive colorectal cancer screening using Cologuard test Colon cancer screening Colonoscopy refused Rectal bleed Diverticulosis Constipation Plan Patient will going get blood work done. Will check iron profile, vitamin B12 and folate as well as vitamin-D levels. Patient will start taking MiraLax and Colace. Can use Proctosol as needed. Discussed with patient the importance of colorectal screening. Patient had positive Cologuard because he has blood in his stools. Long discussion with patient about going for colonoscopy. Patient does admit that he had unpleasant experience when he had his colonoscopy in his 50s. Patient reports that he will think about going for colonoscopy. Postprandial abdominal bloating with certain food. Low FODMAP diet discussed with patient. List of food recommended as well as list of food to avoid given to patient. I will see patient in 5 months, sooner on as needed basis. He is agreeable to this plan and verbalizes understanding of instructions. He was given the opportunity to ask questions and all questions answered. ? Thank you for allowing me to participate in his care Orders Orders IRON PROFILE Today D64.9 Vitamin B12 and Folate Today R19.7 Vitamin D 25-OH (D2 and D3) Today E55.9 Medications New polyethylene glycol 3350 (Miralax) 17 grams PO DAILY 510 grams 2RF hydrocortisone 2.5% (Proctosol HC) 1 appl [place] BID-QID PRN 30 grams 2RF hemor rhoids K64.9 docusate sodium 100 mg PO DAILY 30 caps 3RF K59.00 TODAY'S VISIT Patient is here today for follow-up. Patient reports that he made dietary changes and has been feeling much better. Patient is avoiding food that is high in fat. States that he is eating healthier. He takes MiraLax in the morning and Colace in the evening. Patient denies any dyspepsia, dysphagia or odynophagia. He continues to decline going for colonoscopy. Patient denies any melena, hematochezia, unintentional weight loss or ribbon like stools. [facility] Medical History [facility] Colon cancer screening Diverticulosis Surgical History History of cataract surgery History of appendectomy Perforated appendix Social History Housing: [facility] Alcohol intake: current Comment: daily 2 drinks robert greer Patient Tobacco Use Status: Current everyday Tobacco user Tobacco use type: Cigarette Cigarette Packs Per Day: 0.5 Years Smoked: 1/2 pack a day since 14 years old e-Cigarette/Vaping Use: Never Used Second Hand Smoke Exposure: Yes service: No Current occupational status: retired Cognitive needs: No Hearing needs: No Vision needs: No Review of Systems Const Denies weight gain and Denies weight loss ENT Reports no additional complaints, Denies dysphagia and Denies odynophagia Card Reports no additional complaints Resp Reports no additional complaints GI Denies abdominal pain, Denies belching, Denies melena, Denies bloating, Denies change in bowel habits, Denies dysphagia, Denies excessive flatus, Denies dyspepsia, Denies heartburn, Denies diarrhea, Denies loose stools, Denies nausea, Denies odynophagia and Denies vomiting Reports no additional complaints Musc Reports no additional complaints Neuro Reports no additional complaints Psych Reports no additional complaints Endo Reports no additional complaints Physical Exam Vital Signs: Last Vital Signs Pulse 77 11/11/23 13:09 BP 141/63 H 11/11/23 13:09 BMI result Body Mass Index 30.1 Const General: no acute distress and well developed Nutritional Appearance: obese Orientation/consciousness: patient oriented x3 Resp Effort & Inspection: normal respiratory effort, able to speak in complete sentences, no tracheal deviation and symmetric chest movement Auscultation: clear to auscultation bilaterally Cardio Rate: regular rate GI Inspection: Yes normal to inspection, No distended and Yes obesity Palpation (GI): Soft to palpation, not firm, nontender and No hepatosplenomegaly present Auscultation: normal bowel sounds General: Yes no CVA tenderness Back/Spine/Pelvis Back: no CVA tenderness Skin General skin exam: elasticity normal, turgor normal and dry skin Neuro General: patient oriented x3 Psych Appearance: grossly normal Mental Status: mental status grossly normal Assessment & Plan Assessment & Plan (1) Positive colorectal cancer screening using Cologuard test: Code(s): R19.5 - Other fecal abnormalities (2) Colonoscopy refused: Code(s): Z53.20 - Procedure and treatment not carried out because of patient's decision for unspecified reasons (3) Rectal bleed: Code(s): K62.5 - Hemorrhage of anus and rectum (4) Diverticulosis: Code(s): K57.90 - Diverticulosis of intestine, part unspecified, without perforation or abscess without bleeding (5) Constipation: Code(s): K59.00 - Constipation, unspecified Qualifiers: Constipation type: slow transit constipation Qualified Code(s): K59.01 - Slow transit constipation Plan Continue current bowel regimen. Continue taking MiraLax and Colace. Patient was encouraged to increase fluid intake and activity to promote better bowel motility. Continue avoiding dietary triggers. Patient continues to decline colonoscopy. Patient wants to follow-up in January as he has appointment with his PCP and would like to make this appointment at the same time. Patient was given the opportunity to ask questions and all questions answered. Thank you for allowing me to participate in his care Coding Level of Care Code Est Pt Level 3 (57527) Diagnoses Positive colorectal cancer screening using Cologuard test R19.5 Colonoscopy refused Z53.20 Rectal bleed K62.5 Diverticulosis K57.90 Slow transit constipation K59.01 Constipation type: slow transit constipation Time Spent (min) 25 Comment 15 minutes spent with patient and additional 10 minutes spent reviewing his records
== END 2023-11-11 14:15 | disposition home or self-care (01) ==
PROVIDERS: PCP Internal Medicine; Visit Provider Nurse Practitioner Family
DX: R19.5 Other fecal abnormalities (principal); Z53.20 Procedure and treatment not carried out because of patient's decision for unspecified reasons; K62.5 Hemorrhage of anus and rectum; K57.90 Diverticulosis of intestine, part unspecified, without perforation or abscess without bleeding; K59.01 Slow transit constipation
CPT/HCPCS: 99213

== ENCOUNTER → 2023-11-11 13:03 | Outpatient (BNVA) | payer MEDICARE, OTHER, SELFPAY | PROVIDERS: PCP Internal Medicine; Visit Provider Nurse Practitioner Family | DX: K62.5 Hemorrhage of anus and rectum (principal); K57.90 Diverticulosis of intestine, part unspecified, without perforation or abscess without bleeding; K59.01 Slow transit constipation | CPT/HCPCS: 99212 ==

== ENCOUNTER 2024-02-19 14:11 | Outpatient (AMB) | payer MEDICARE, OTHER, SELFPAY ==
[2024-02-19 13:47] VITALS: BP 122/68; PULSE 70; O2SAT 94; BMI 30.3
--- NOTE | 2024-02-19 13:47 | A.OFFPC_ITS ---
Vital Signs 02/19/24 13:47 Height 5 ft 11 in Weight 217 lb BMI 30.3 BP 122/68 Blood Pressure Location Lt brachial Position Sitting Pulse 70 Pulse Source Pulse Oximeter Pulse Oximetry (%) 94 Oxygen Delivery Method Room Air Intake Visit Reasons: Hypertension Allergies house dust Allergy (Mild, Verified 02/19/24 13:48) Itching bees Allergy (Intermediate, Uncoded 02/19/24 13:48) Itching pollen Allergy (Intermediate, Uncoded 02/19/24 13:48) Itching Medication List - Last Reconciled 02/19/24 by Angelita Olsen MD amoxicillin 875 mg PO BID atenolol 50 mg PO DAILY docusate sodium 100 mg PO DAILY epinephrine 0.3 mg (0.3 mL) IM ONCE PRN finasteride 5 mg PO DAILY fluticasone propionate 50 mcg/actuation (Flonase Allergy Relief) 2 sprays intranasal DAILY hydrocortisone 2.5% (Proctosol HC) 1 appl RI BID-QID PRN Lactobacillus rhamnosus GG (Culturelle) 1 cap PO DAILY nifedipine ER 90 mg PO DAILY polyethylene glycol 3350 (Miralax) 17 grams PO DAILY tamsulosin 0.8 mg (2 x 0.4 mg) PO DAILY Tobacco use date assessed: 10/07/23 Fall risk assessment: No Falls in past year Last assessed Fall Risk: 02/19/24 Dental Screening Dental Screen Date: 02/19/24 Did you have a dental visit in the last 12 months?: Yes Did you have a dental problem in the last 6 months where you did not have access to dental care?: No Was dental information given to patient?: Patient has dentist HPI Hypertension HPI Details 73-year-old obese male with a history of hypertension BPH lumbar degenerative disc disease hypercholesterolemia last seen in 10/13/2023 has had a positive Cologuard testing and was advised to see Gastroenterology and patient has seen gastroenterology but declined colonoscopy.. Patient had blood work done 02/15/2024 showing an elevated cadmium level LDL of 134 triglyceride of 205 elevated prostate number to 15.6 normal B12. Patient follows up with urology seen in 01/11/2024 and continuing to monitor. PFT done09/2023 mild ventilatory defect without obstruction moderate restrictive defect. CT scan of the abdomen in 12/11/2021 received showing extensive colonic diverticulosis postsurgical changes light lower quadrant abscess resolved hiatal hernia. will see Spine doctor next week PSS - has had injection a months ago. 2 weeks ago r eye swollen tearing with photosensitivity R eye - seen ophthamology - steroid eye gtt Srinivas Harley. ? allergic reaction- did see today . PAtient was seeing the dental hygienist and was noted to have a white spot and ? abscess and was advsied to see PCP [facility] Medical History Detached retina Colon cancer screening Diverticulosis Surgical History History of cataract surgery History of appendectomy Perforated appendix Social History Housing: Condominium Alcohol intake: current Comment: daily 2 drinks robert greer Patient Tobacco Use Status: Current everyday Tobacco user Tobacco use type: Cigarette Cigarette Packs Per Day: 0.5 Years Smoked: 1/2 pack a day since 14 years old e-Cigarette/Vaping Use: Never Used Second Hand Smoke Exposure: Yes service: No Current occupational status: retired Cognitive needs: No Hearing needs: No Vision needs: No Questionnaire Thrive Questionnaire Date Thrive assessed: 09/08/23 AUDIT C Alcohol Use Questionnaire (AUDIT-C) 1. How often do you have a drink containing alcohol?: Never 2. How many drinks containing alcohol do you have on a typical day when you are drinking?: 1 or 2 3. How often do you have six or more drinks on one occasion?: Never Total Score: 0 ERENDIRA-7 AMB Questionnaire ERENDIRA-7 Date ERENDIRA - 7 assessed: 09/08/23 Source: Developed by Drs. Srinivas Moody, Angely Knox, Bryn Willard and colleagues, with an educational jose from [employer]. Physical exam (Primary Care) Vital Signs: Last Vital Signs Pulse 70 02/19/24 13:47 BP 122/68 02/19/24 13:47 Pulse Ox 94 02/19/24 13:47 Oxygen Delivery Method Room Air 02/19/24 13:47 BMI result Body Mass Index 30.3 Tobacco/Smoking Status: Tobacco use Status Tobacco use date assessed 10/07/23 02/19/24 13:48 Patient Tobacco Use Status Current everyday Tobacco 02/19/24 13:48 Tobacco use type Cigarette 02/19/24 13:48 e-Cigarette/Vaping Use Never Used 02/19/24 13:48 Thrive Assessment: Date of Thrive Assessment Date Thrive assessed 09/08/23 02/19/24 13:48 Const General: alert; No acute distress Eyes Conjunctivae: conjunctivae normal Resp Auscultation: clear to auscultation bilaterally Cardio Rate: regular rate Rhythm: regular rhythm GI Inspection: Yes normal to inspection Extrem General: Yes normal to inspection and No edema Assessment and Plan Assessment & Plan (1) Exposure to cadmium: Code(s): Z77.29 - Contact with and (suspected) exposure to other hazardous substances Plan: Patient brought in lab results showing an elevated cadmium level. Advised to stop smoking!!! (2) Elevated PSA: Code(s): R97.20 - Elevated prostate specific antigen [PSA] Plan: Patient has seen Urology and continued to be monitored (3) Colonoscopy refused: Code(s): Z53.20 - Procedure and treatment not carried out because of patient's decision for unspecified reasons Plan: Patient is aware and has spoken to the test car driver (4) Hypertriglyceridemia: Code(s): E78.1 - Pure hyperglyceridemia Plan: Avoid fried foods, chicken skin, eggs, butter margarine, pastries and meat. Be it pork or beef they have a lot of cholesterol (5) Cough: Code(s): R05.9 - Cough, unspecified Plan: Pulmonary function test has revealed restrictive lung problem (6) Hypertension: Code(s): I10 - Essential (primary) hypertension Plan: Continue with blood pressure medication. Decrease salt intake and exercise patient takes nifedipine 90 mg once a day atenolol 50 mg once a day (7) BPH (benign prostatic hyperplasia): Code(s): N40.0 - Benign prostatic hyperplasia without lower urinary tract symptoms Plan: Patient on finasteride 5 mg once a day and tamsulosin (8) Dental abscess: Code(s): K04.7 - Periapical abscess without sinus Plan: antibiotic sent (9) Lumbar degenerative disc disease: Comment: MRI done 06/2022 moderate L neural foraminal narrowing L5-S 1 crowding L L5 nerve root Code(s): M51.36 - Other intervertebral disc degeneration, lumbar region Plan: will be seeing PSS - has had injection done 1 month ago Orders: Orders XR chest 2V Today R05.9 - Cough, unspecified Medications: New Lactobacillus rhamnosus GG (Culturelle) 1 cap PO DAILY 14 caps 0RF K04.7 - Periapical abscess without sinus amoxicillin 875 mg PO BID 14 tabs 0RF K04.7 - Periapical abscess without sinus Coding Level of Care Code Est Pt Level 4 (01728) Diagnoses Exposure to cadmium Z77.29 Elevated PSA R97.20 Colonoscopy refused Z53.20 Hypertriglyceridemia E78.1 Cough R05.9 Hypertension I10 BPH (benign prostatic hyperplasia) N40.0 Dental abscess K04.7 Lumbar degenerative disc disease M51.36
== END 2024-02-19 14:57 | disposition home or self-care (01) ==
PROVIDERS: PCP Internal Medicine; Visit Provider Internal Medicine
DX: Z77.29 Contact with and (suspected) exposure to other hazardous substances (principal); R97.20 Elevated prostate specific antigen [PSA]; Z53.20 Procedure and treatment not carried out because of patient's decision for unspecified reasons; E78.1 Pure hyperglyceridemia; R05.9 Cough, unspecified; I10 Essential (primary) hypertension; N40.0 Benign prostatic hyperplasia without lower urinary tract symptoms; K04.7 Periapical abscess without sinus; M51.36 Other intervertebral disc degeneration, lumbar region
CPT/HCPCS: 99214

== ENCOUNTER 2024-02-19 15:08 | Outpatient (REF) | payer MEDICARE, OTHER, SELFPAY ==
--- NOTE | ~2024-02-19 | XR_ITS ---
EXAMINATION: XR CHEST CLINICAL INFORMATION: Cough, unspecified COMPARISON: None available. TECHNIQUE: 2 views of the chest were obtained. FINDINGS: There is mild cardiac enlargement. Cardiomediastinal contours are otherwise unremarkable. Lungs are well expanded. There are no focal opacities. No pleural fluid. No pneumothorax. Structures of the chest wall are intact. XR/XR chest 2V IMPRESSION: Mild cardiac enlargement. No acute process.
== END 2024-02-19 15:09 | disposition home or self-care (01) ==
LOC: HO.XRAY 15:08
PROVIDERS: PCP Internal Medicine; Visit Provider Internal Medicine
DX: R05.9 Cough, unspecified (principal)
CPT/HCPCS: 71046

== ENCOUNTER 2024-03-11 09:52 | Outpatient (AMB) | payer MEDICARE, OTHER, SELFPAY ==
--- NOTE | 2024-03-11 10:03 | A.OFFVIS_ITS ---
Vital Signs 03/11/24 10:25 Height 5 ft 11 in Weight 216 lb 0.848 oz BMI 30.1 BP 132/68 Blood Pressure Location Rt brachial Position Sitting Pulse 64 Pulse Source Pulse Oximeter Pulse Oximetry (%) 99 Oxygen Delivery Method Room Air Intake Visit Reasons: 3 month follow up Intake Note: Dheeraj presents in office today for a scheduled 3 mos FUV. CC; Pt reports that they have remained stable since their last visit. Pt states that their current regimen seems to be working well for them. Pt has also been trying to make dietary adjustments which they report have been helping as well. Washer Cutter Required: No Allergies bee venom protein (honey bee) Allergy (Intermediate, Verified 03/11/24 10:06) Itching house dust Allergy (Mild, Verified 02/19/24 13:48) Itching Seasonal Allergies Allergy (Mild, Verified 03/11/24 10:06) Runny Nose HPI HPI 3 month follow up: Details: LAST VISIT Positive colorectal cancer screening using Cologuard test Colonoscopy refused Rectal bleed Diverticulosis Constipation Plan Continue current bowel regimen. Continue taking MiraLax and Colace. Patient was encouraged to increase fluid intake and activity to promote better bowel motility. Continue avoiding dietary triggers. Patient continues to decline colonoscopy. Patient wants to follow-up in January as he has appointment with his PCP and would like to make this appointment at the same time. Patient was given the opportunity to ask questions and all questions answered. ? TODAY'S VISIT Patient is here today for follow-up. Patient reports that he has been doing well. Made some dietary changes. Eating more fiber. He is taking MiraLax and Colace in his able to move his bowels well. Patient denies any dyspepsia, dysphagia or odynophagia. Denies any melena, hematochezia, unintentional weight loss or ribbon like stools. Patient is also taking probiotics. Denies any abdominal pain or discomfort. Denies any nausea or vomiting. Denies constipation or diarrhea. [facility] Medical History Detached retina Colon cancer screening Diverticulosis Surgical History History of cataract surgery History of appendectomy Perforated appendix Social History Housing: Condominium Alcohol intake: current Comment: daily 2 drinks vodka chloei Patient Tobacco Use Status: Current everyday Tobacco user Tobacco use type: Cigarette Cigarette Packs Per Day: 0.5 Years Smoked: 1/2 pack a day since 14 years old e-Cigarette/Vaping Use: Never Used Second Hand Smoke Exposure: Yes service: No Current occupational status: retired Cognitive needs: No Hearing needs: No Vision needs: No Review of Systems Const Denies weight gain and Denies weight loss ENT Reports no additional complaints, Denies dysphagia and Denies odynophagia Card Reports no additional complaints Resp Reports no additional complaints GI Denies abdominal pain, Denies belching, Denies melena, Denies bloating, Denies change in bowel habits, Denies dysphagia, Denies excessive flatus, Denies dyspepsia, Denies heartburn, Denies diarrhea, Denies loose stools, Denies nausea, Denies odynophagia and Denies vomiting Reports no additional complaints Musc Reports no additional complaints Neuro Reports no additional complaints Psych Reports no additional complaints Endo Reports no additional complaints Physical Exam Vital Signs: Last Vital Signs Pulse 64 03/11/24 10:25 BP 132/68 03/11/24 10:25 Pulse Ox 99 03/11/24 10:25 Oxygen Delivery Method Room Air 03/11/24 10:25 BMI result Body Mass Index 30.1 Const General: no acute distress Nutritional Appearance: obese Orientation/consciousness: patient oriented x3 Resp Effort & Inspection: normal respiratory effort, able to speak in complete sentences, no tracheal deviation and symmetric chest movement Auscultation: clear to auscultation bilaterally Cardio Rate: regular rate GI Inspection: Yes normal to inspection, No distended and Yes obesity Palpation (GI): Soft to palpation, not firm, nontender and No hepatosplenomegaly present Auscultation: normal bowel sounds General: Yes no CVA tenderness Back/Spine/Pelvis Back: no CVA tenderness Skin General skin exam: elasticity normal, turgor normal and dry skin Neuro General: patient oriented x3 Psych Appearance: grossly normal Mental Status: mental status grossly normal Assessment & Plan Assessment & Plan (1) Positive colorectal cancer screening using Cologuard test: Code(s): R19.5 - Other fecal abnormalities Category: Medical (2) Colonoscopy refused: Code(s): Z53.20 - Procedure and treatment not carried out because of patient's decision for unspecified reasons Category: Medical (3) Rectal bleed: Code(s): K62.5 - Hemorrhage of anus and rectum (4) Diverticulosis: Code(s): K57.90 - Diverticulosis of intestine, part unspecified, without perforation or abscess without bleeding (5) Constipation: Code(s): K59.00 - Constipation, unspecified Qualifiers: Constipation type: slow transit constipation Qualified Code(s): K59.01 - Slow transit constipation Plan Continue current management with stool softener and MiraLax. Patient continues to decline colonoscopy. Denies any rectal bleed. Denies any melena, unintentional weight loss or ribbon like stools. Patient will return in 6 months, sooner on as needed basis. He is agreeable to this plan and verbalizes understanding of instructions. He was given the opportunity to ask questions and all questions answered. Thank you for allowing me to participate in his care Coding Level of Care Code Est Pt Level 3 (39619) Diagnoses Positive colorectal cancer screening using Cologuard test R19.5 Colonoscopy refused Z53.20 Rectal bleed K62.5 Diverticulosis K57.90 Slow transit constipation K59.01 Constipation type: slow transit constipation Time Spent (min) 25 Comment 15 minutes spent with patient and additional 10 minutes spent reviewing his records
[2024-03-11 10:25] VITALS: BP 132/68; PULSE 64; O2SAT 99; BMI 30.1
== END 2024-03-11 10:44 | disposition home or self-care (01) ==
PROVIDERS: PCP Internal Medicine; Visit Provider Nurse Practitioner Family
DX: R19.5 Other fecal abnormalities (principal); Z53.20 Procedure and treatment not carried out because of patient's decision for unspecified reasons; K62.5 Hemorrhage of anus and rectum; K57.90 Diverticulosis of intestine, part unspecified, without perforation or abscess without bleeding; K59.01 Slow transit constipation
CPT/HCPCS: 99213

== ENCOUNTER → 2024-03-11 09:52 | Outpatient (BNVA) | payer MEDICARE, OTHER, SELFPAY | PROVIDERS: PCP Internal Medicine; Visit Provider Nurse Practitioner Family | DX: K59.01 Slow transit constipation (principal); K62.5 Hemorrhage of anus and rectum; K57.90 Diverticulosis of intestine, part unspecified, without perforation or abscess without bleeding; R19.5 Other fecal abnormalities; Z53.20 Procedure and treatment not carried out because of patient's decision for unspecified reasons | CPT/HCPCS: 99212 ==

== ENCOUNTER 2024-04-11 13:30 | Outpatient (AMB) | payer MEDICARE, OTHER, SELFPAY ==
--- NOTE | 2024-04-11 14:39 | HO.SPINEOV ---
Intake Visit Reasons: Lumbar radiculopathy Intake Note: Mr. Vieyra is here today c/o left sided low back and leg pain. Shoulder Sawyer Required: No Allergies bee venom protein (honey bee) Allergy (Intermediate, Verified 04/11/24 14:40) Itching house dust Allergy (Mild, Verified 04/11/24 14:40) Itching Seasonal Allergies Allergy (Mild, Verified 04/11/24 14:40) Runny Nose Assessment & Plan Assessment & Plan (1) Numbness and tingling of left lower extremity: Code(s): R20.0 - Anesthesia of skin; R20.2 - Paresthesia of skin Category: Medical Plan Dear Dr Corral, Thank you for referring Mr Vieyra to our office today. He has a 73-year-old male who presents to the office today for evaluation of a tingling in his left leg that started a few years back, maybe 2018. 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 He noticed 4-5 years ago a tingling sensation which starts in the front of his thigh anteriorly radiates straight down his anterior tibial region into his foot. He does not have any back pain. He does not have any buttock pain. He underwent physical therapy and that did not help. He used a chiropractor for a number of months and that did seem to help. He would have an adjustment done right before he would go bowling and it would allow him to basically be symptom-free well he was bowling. The next day he would have the tingling even more intense than it was before, but the chiropractor was able to somehow get the symptoms to improve right before at his activities. He has done a cortisone injection or 2 at your office but did not report any improvements. I believe these were done on the L5 nerve, transforaminal. He reinforced this to me that he does not have any actual pain. It is an uncomfortable sensation because it is tingling but it is not painful. It is not necessarily aggravated with walking. Prolonged sitting, bowling or when he is really in a fish when he is deep sea fishing it will aggravate it. He is here today for surgical evaluation. PMH: Hypertension, BPH, hiatal hernia, diverticulosis, appendectomy, detached retina repair, cataract surgery. Denies any history of heart attack, stroke, arrhythmias, bleeding disorders, liver disease or kidney disease, diabetes Social hx: He he does smoke but half a pack a day but no recreational drugs. No significant alcohol abuse but he will drink a martini every evening. Medications: Atenolol, nifedipine, tamsulosin, finasteride Allergies: None Physical exam: Awake alert oriented no acute distress, strength is intact in the left leg, reflexes are normal. Negative SI joint testing. Imaging review: Lumbar MRI done at [facility] in March of 2024 shows that he has some [id number] disc degeneration, the only significant finding that I see is on the left at the L5-S1 disc level the left L5 foramen is moderately narrowed. Impression: 73-year-old male presents today with a mechanical type tingling which starts in his anterior thigh and runs straight down his anterior tibial region into his foot. 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 He has been avoiding doing them for the last number of months because they will aggravate the symptoms to a degree where it makes him feel very unstable the next day on his left leg. Just to reinforce, he has no pain either in his back or shooting down his leg. His exam is nonfocal. He did not respond to injections. He did respond interestingly however to the chiropractic manipulations. This suggests that there was some degree of spinal involvement. The MRI shows that he has compression of the left L5 nerve. His symptoms are somewhat atypical for radiculopathy in that he has no pain, and the dermatomal distribution is not classic for L5. Generally, when we offer somebody surgery to decompress the nerve, we typically debt counselor them that symptoms like tingling and numbness may not improve so it is hard to say if he would be a surgical candidate. The strongest indication for surgery is pain and he does not have that. I am going to order an EMG to see if we can clarify the diagnosis with that. Once that is done, I will review his imaging in the EMG with Dr. Cavazos and get back to the patient with a final plan. Thank you for allowing us to care for your patient. The total time spent with this visit with this patient was 45 minutes reviewing history, physical exam, lumbar imaging review, and implementation of treatment plan or further diagnostic testing Jaden Cavazos MD,PhD [facility] Orders: Orders NE electromyogram (EMG) Today R20.0 - Anesthesia of skin, R20.2 - Paresthesia of skin Coding Level of Care Code New Pt Level 4 (79220) Diagnoses Numbness and tingling of left lower extremity R20.0; R20.2
== END 2024-04-11 15:52 | disposition home or self-care (01) ==
PROVIDERS: PCP Internal Medicine; Referring Provider Student in an Organized Health Care Education/Training Program; Visit Provider Physician Assistant
DX: R20.0 Anesthesia of skin (principal); R20.2 Paresthesia of skin
CPT/HCPCS: 99204

== ENCOUNTER → 2024-04-11 13:30 | Outpatient (BNVA) | payer MEDICARE, OTHER, SELFPAY | PROVIDERS: PCP Internal Medicine; Visit Provider Physician Assistant | DX: M54.16 Radiculopathy, lumbar region (principal); R20.0 Anesthesia of skin; R20.2 Paresthesia of skin | CPT/HCPCS: 99202 ==

== ENCOUNTER 2024-06-27 14:48 | Outpatient (AMB) | payer MEDICARE, OTHER, SELFPAY ==
--- NOTE | 2024-06-27 14:56 | A.OFFVIS_ITS ---
Vital Signs 06/27/24 14:57 Height 5 ft 11 in Weight 220 lb 14.451 oz BMI 30.8 BP 146/70 H Blood Pressure Location Rt brachial Position Sitting Pulse 66 Pulse Source Pulse Oximeter Pulse Oximetry (%) 100 Oxygen Delivery Method Room Air Intake Visit Reasons: New sx developed, req sooner appointment Intake Note: Relevant Flags or Indicators ? Requires Service Architect? N (Pt prefers Herb) Dheeraj presents in office today for a scheduled 4 mos FUV. This appt was moved up due to new sx and concerns. CC; No recent labs, diagnostics, or med orders placed. ? Relevant GI Sx as reported per pt? Dysphagia ? Fecal abnormalities o?? Diarrhea -- Pt has also been having excessive sweating which he feels is related to his BM. ? Bloating -- Gas seems to be getting stuck pt feels. Pt has difficulties with eructation. ? Hx of any recent surgeries? None Service Architect Required: No Allergies bee venom protein (honey bee) Allergy (Intermediate, Verified 06/27/24 14:56) Itching house dust Allergy (Mild, Verified 06/27/24 14:56) Itching Seasonal Allergies Allergy (Mild, Verified 06/27/24 14:56) Runny Nose HPI HPI New sx developed, req sooner appointment: Details: LAST VISIT: Positive colorectal cancer screening using Cologuard test Colonoscopy refused Rectal bleed Diverticulosis Constipation Plan Continue current management with stool softener and MiraLax. Patient continues to decline colonoscopy. Denies any rectal bleed. Denies any melena, unintentional weight loss or ribbon like stools. Patient will return in 6 months, sooner on as needed basis. He is agreeable to this plan and verbalizes understanding of instructions. He was given the opportunity to ask questions and all questions answered. ? Thank you for allowing me to participate in his care TODAY'S VISIT: Patient is here today for requested visit. Patient was last seen in February and was supposed to come for follow-up August 22, however he requested to be seen sooner as he been having some aggravating symptoms. Patient reports postprandial loose stools and then feeling constipated. Reports that he continues to have acid reflux, he is trying to avoid dietary triggers however he continues to have a acid reflux with occasional dyspepsia. Patient denies dysphagia or odynophagia. Patient denies any nausea or vomiting. Abdominal cramping and bloating postprandially and sometimes bloating worse towards the end of the day. Patient denies melena, hematochezia, unintentional weight loss or ribbon like stools. Patient continues to decline colonoscopy. [facility] Medical History [facility] retina Colon cancer screening Diverticulosis Surgical History History of cataract surgery History of appendectomy Perforated appendix Social History Housing: [facility] Alcohol intake: current Comment: daily 2 drinks robert greer Patient Tobacco Use Status: Current everyday Tobacco user Tobacco use type: Cigarette Cigarette Packs Per Day: 0.5 Years Smoked: 1/2 pack a day since 14 years old e-Cigarette/Vaping Use: Never Used Second Hand Smoke Exposure: Yes service: No Current occupational status: retired Cognitive needs: No Hearing needs: No Vision needs: No Review of Systems Const Denies weight gain and Denies weight loss ENT Reports no additional complaints, Denies dysphagia and Denies odynophagia Card Reports no additional complaints Resp Reports no additional complaints GI Denies abdominal pain, Denies belching, Denies melena, Reports bloating, Denies change in bowel habits, Reports constipation, Denies dysphagia, Denies excessive flatus, Denies dyspepsia, Reports heartburn, Reports diarrhea, Denies loose stools, Denies nausea, Denies odynophagia and Denies vomiting Reports no additional complaints Musc Reports no additional complaints Neuro Reports no additional complaints Psych Reports no additional complaints Endo Reports no additional complaints Physical Exam Vital Signs: Last Vital Signs Pulse 66 06/27/24 14:57 BP 146/70 H 06/27/24 14:57 Pulse Ox 100 06/27/24 14:57 Oxygen Delivery Method Room Air 06/27/24 14:57 BMI result Body Mass Index 30.8 Const General: no acute distress Nutritional Appearance: obese Orientation/consciousness: patient oriented x3 Resp Effort & Inspection: normal respiratory effort, able to speak in complete sentences, no tracheal deviation and symmetric chest movement Auscultation: clear to auscultation bilaterally Cardio Rate: regular rate GI Inspection: Yes normal to inspection, No distended and Yes obesity Palpation (GI): Soft to palpation, not firm, nontender and No hepatosplenomegaly present Auscultation: normal bowel sounds General: Yes no CVA tenderness Back/Spine/Pelvis Back: no CVA tenderness Skin General skin exam: elasticity normal, turgor normal and dry skin Neuro General: patient oriented x3 Psych Appearance: grossly normal Mental Status: mental status grossly normal Assessment & Plan Assessment & Plan (1) Positive colorectal cancer screening using Cologuard test: Code(s): R19.5 - Other fecal abnormalities Category: Medical (2) Colonoscopy refused: Code(s): Z53.20 - Procedure and treatment not carried out because of patient's decision for unspecified reasons Category: Medical (3) Rectal bleed: Code(s): K62.5 - Hemorrhage of anus and rectum (4) Diverticulosis: Code(s): K57.90 - Diverticulosis of intestine, part unspecified, without perforation or abscess without bleeding (5) Constipation: Code(s): K59.00 - Constipation, unspecified Qualifiers: Constipation type: slow transit constipation Qualified Code(s): K59.01 - Slow transit constipation (6) GERD (gastroesophageal reflux disease): Code(s): K21.9 - Gastro-esophageal reflux disease without esophagitis Qualifiers: Esophagitis presence: esophagitis presence not specified Qualified Code(s): K21.9 - Gastro-esophageal reflux disease without esophagitis (7) Postprandial diarrhea: Code(s): K52.9 - Noninfective gastroenteritis and colitis, unspecified (8) Postprandial abdominal bloating: Code(s): R14.0 - Abdominal distension (gaseous) Plan Occasional abdominal pain, patient reports sometimes postprandially in upper abdomen. Will send him to do ultrasound. Patient was encouraged to increase fiber intake. Reports epigastric pain and acid reflux. Patient can take pantoprazole 20 mg half an hour before breakfast. Avoid dietary triggers in late night snacking. Staying upright for minimum 3 hours after meals discussed with patient. Patient was encouraged to take Dulcolax in the evening to help him empty his bowels better. Patient has appointment end of July he will keep this 1. He will call our office if he will have any GI concerning symptoms. He is agreeable to this plan and verbalizes understanding of instructions. He was given the opportunity to ask questions and all questions answered. Thank you for allowing me to participate in his care Orders: Orders US abdomen complete 06/27/24 R10.9 - Unspecified abdominal pain Medications: New bisacodyl (Dulcolax (bisacodyl)) 10 mg (2 x 5 mg) PO BEDTIME 180 tabs 4RF pantoprazole 20 mg PO DAILY 30 tabs 3RF Coding Level of Care Code Est Pt Level 4 (14132) Diagnoses Positive colorectal cancer screening using Cologuard test R19.5 Colonoscopy refused Z53.20 Rectal bleed K62.5 Diverticulosis K57.90 Slow transit constipation K59.01 Constipation type: slow transit constipation Gastroesophageal reflux disease, unspecified whether esophagitis present K21.9 Esophagitis presence: esophagitis presence not specified Postprandial diarrhea K52.9 Postprandial abdominal bloating R14.0 Time Spent (min) 35 Comment 25 minutes spent with patient and additional 10 minutes spent reviewing his records
[2024-06-27 14:57] VITALS: BP 146/70; PULSE 66; O2SAT 100; BMI 30.8
== END 2024-06-27 15:49 | disposition home or self-care (01) ==
LOC: HO.HGI 14:48
PROVIDERS: PCP Internal Medicine; Visit Provider Nurse Practitioner Family
DX: R19.5 Other fecal abnormalities (principal); Z53.20 Procedure and treatment not carried out because of patient's decision for unspecified reasons; K62.5 Hemorrhage of anus and rectum; K57.90 Diverticulosis of intestine, part unspecified, without perforation or abscess without bleeding; K59.01 Slow transit constipation; K21.9 Gastro-esophageal reflux disease without esophagitis; K52.9 Noninfective gastroenteritis and colitis, unspecified; R14.0 Abdominal distension (gaseous)
CPT/HCPCS: 99214

== ENCOUNTER → 2024-06-27 14:48 | Outpatient (BNVA) | payer MEDICARE, OTHER, SELFPAY | PROVIDERS: PCP Internal Medicine; Visit Provider Nurse Practitioner Family | DX: K21.9 Gastro-esophageal reflux disease without esophagitis (principal); K62.5 Hemorrhage of anus and rectum; K57.90 Diverticulosis of intestine, part unspecified, without perforation or abscess without bleeding; K59.01 Slow transit constipation; K52.9 Noninfective gastroenteritis and colitis, unspecified; R19.5 Other fecal abnormalities; R14.0 Abdominal distension (gaseous); R10.9 Unspecified abdominal pain; Z53.20 Procedure and treatment not carried out because of patient's decision for unspecified reasons | CPT/HCPCS: 99212 ==

== ENCOUNTER 2024-08-22 09:52 | Outpatient (AMB) | payer MEDICARE, OTHER, SELFPAY ==
[2024-08-22 09:54] VITALS: BP 140/66; PULSE 66; O2SAT 98; BMI 30.4
--- NOTE | 2024-08-22 09:54 | A.OFFVIS_ITS ---
Vital Signs 08/22/24 09:54 Height 5 ft 11 in Weight 217 lb 13.067 oz BMI 30.4 BP 140/66 H Blood Pressure Location Rt brachial Position Sitting Pulse 66 Pulse Source Pulse Oximeter Pulse Oximetry (%) 98 Oxygen Delivery Method Room Air Intake Visit Reasons: 1 mos FUV. Intake Note: ESTABLISHED PATIENT Dheeraj presents in office today for a scheduled 1 mos FUV Meds and Allergies reviewed? Y No recent or relevant surgeries? N Any significant concerns or new changes? No significant concerns/changes. Pt to review results. Pharmacy verified? [facility] Sales Consultant Required: No Allergies bee venom protein (honey bee) Allergy (Intermediate, Verified 08/22/24 12:29) Itching house dust Allergy (Mild, Verified 08/22/24 12:29) Itching Seasonal Allergies Allergy (Mild, Verified 08/22/24 12:29) Runny Nose HPI HPI 1 mos FUV.: Details: LAST VISIT: Positive colorectal cancer screening using Cologuard test Colonoscopy refused Rectal bleed Diverticulosis Constipation GERD (gastroesophageal reflux disease) Postprandial diarrhea Postprandial abdominal bloating Plan Occasional abdominal pain, patient reports sometimes postprandially in upper abdomen. Will send him to do ultrasound. Patient was encouraged to increase fiber intake. Reports epigastric pain and acid reflux. Patient can take pantoprazole 20 mg half an hour before breakfast. Avoid dietary triggers in late night snacking. Staying upright for minimum 3 hours after meals discussed with patient. Patient was encouraged to take Dulcolax in the evening to help him empty his bowels better. Patient has appointment end of July he will keep this 1. He will call our office if he will have any GI concerning symptoms. He is agreeable to this plan and verbalizes understanding of instructions. He was given the opportunity to ask questions and all questions answered. ? Thank you for allowing me to participate in his care Orders Orders US abdomen complete 06/27/24 R10.9 Medications New bisacodyl (Dulcolax (bisacodyl)) 10 mg (2 x 5 mg) PO BEDTIME 180 tabs 4RF pantoprazole 20 mg PO DAILY 30 tabs 3RF TODAY'S VISIT Patient is here today for follow-up and to discuss lab and ultrasound results. Patient had normal ultrasound except for increased echogenicity of the liver most likely fatty liver. Lab work all normal. Patient reports that he is no longer taking pantoprazole. Patient states that doing well, no longer has acid reflux. He is moving his bowels better now that he is taking MiraLax. Tried Dulcolax, however he had cramps. Patient denies any other GI concerning symptoms. [facility] Medical History Detached retina Colon cancer screening Diverticulosis Surgical History History of cataract surgery History of appendectomy Perforated appendix Social History Housing: [facility] Alcohol intake: current Comment: daily 2 drinks ninadka percy Patient Tobacco Use Status: Current everyday Tobacco user Tobacco use type: Cigarette Cigarette Packs Per Day: 0.5 Years Smoked: 1/2 pack a day since 14 years old Packs Per Year: 0 e-Cigarette/Vaping Use: Never Used Second Hand Smoke Exposure: Yes service: No Current occupational status: retired Cognitive needs: No Hearing needs: No Vision needs: No Review of Systems Const Denies weight gain and Denies weight loss ENT Reports no additional complaints, Denies dysphagia and Denies odynophagia Card Reports no additional complaints Resp Reports no additional complaints GI Denies abdominal pain, Denies belching, Denies melena, Denies bloating, Denies change in bowel habits, Denies dysphagia, Denies excessive flatus, Denies dyspepsia, Denies heartburn, Denies diarrhea, Denies loose stools, Denies nausea, Denies odynophagia and Denies vomiting Reports no additional complaints Musc Reports no additional complaints Neuro Reports no additional complaints Psych Reports no additional complaints Endo Reports no additional complaints Physical Exam Vital Signs: Last Vital Signs Pulse 66 08/22/24 09:54 BP 140/66 H 08/22/24 09:54 Pulse Ox 98 08/22/24 09:54 Oxygen Delivery Method Room Air 08/22/24 09:54 BMI result Body Mass Index 30.4 Const General: no acute distress Nutritional Appearance: obese Orientation/consciousness: patient oriented x3 Resp Effort & Inspection: normal respiratory effort, able to speak in complete sentences, no tracheal deviation and symmetric chest movement Auscultation: clear to auscultation bilaterally Cardio Rate: regular rate GI Inspection: Yes normal to inspection, No distended and Yes obesity Palpation (GI): Soft to palpation, not firm, nontender and No hepatosplenomegaly present Auscultation: normal bowel sounds General: Yes no CVA tenderness Back/Spine/Pelvis Back: no CVA tenderness Skin General skin exam: elasticity normal, turgor normal and dry skin Neuro General: patient oriented x3 Psych Appearance: grossly normal Mental Status: mental status grossly normal Assessment & Plan Assessment & Plan (1) Positive colorectal cancer screening using Cologuard test: Code(s): R19.5 - Other fecal abnormalities Category: Medical (2) Colonoscopy refused: Code(s): Z53.20 - Procedure and treatment not carried out because of patient's decision for unspecified reasons Category: Medical (3) Rectal bleed: Code(s): K62.5 - Hemorrhage of anus and rectum (4) Diverticulosis: Code(s): K57.90 - Diverticulosis of intestine, part unspecified, without perforation or abscess without bleeding (5) Constipation: Code(s): K59.00 - Constipation, unspecified Qualifiers: Constipation type: slow transit constipation Qualified Code(s): K59.01 - Slow transit constipation (6) GERD (gastroesophageal reflux disease): Code(s): K21.9 - Gastro-esophageal reflux disease without esophagitis Qualifiers: Esophagitis presence: esophagitis presence not specified Qualified Code(s): K21.9 - Gastro-esophageal reflux disease without esophagitis (7) Postprandial diarrhea: Code(s): K52.9 - Noninfective gastroenteritis and colitis, unspecified (8) Postprandial abdominal bloating: Code(s): R14.0 - Abdominal distension (gaseous) Plan Ask patient again to see if he is willing to go for colonoscopy in [facility] declines. Continue avoiding dietary triggers and late night snacking. Normal ultrasound except for fatty liver. Patient will try to go to the gym and exercise. Avoid fatty food. Low-salt, low carb and high-protein diet recommended. Follow-up in 6 months, sooner on as needed basis. Patient is agreeable to this plan and verbalizes understanding of instructions. He was given the opportunity to ask questions and all questions answered. Thank you for allowing me to participate in his care Coding Level of Care Code Est Pt Level 3 (24039) Complex EM visit Add On G2211 Diagnoses Positive colorectal cancer screening using Cologuard test R19.5 Colonoscopy refused Z53.20 Rectal bleed K62.5 Diverticulosis K57.90 Slow transit constipation K59.01 Constipation type: slow transit constipation Gastroesophageal reflux disease, unspecified whether esophagitis present K21.9 Esophagitis presence: esophagitis presence not specified Postprandial diarrhea K52.9 Postprandial abdominal bloating R14.0 Time Spent (min) 35 Comment 20 minutes spent with patient and additional 15 minutes spent reviewing his records
== END 2024-08-22 10:31 | disposition home or self-care (01) ==
PROVIDERS: PCP Internal Medicine; Visit Provider Nurse Practitioner Family
DX: R19.5 Other fecal abnormalities (principal); Z53.20 Procedure and treatment not carried out because of patient's decision for unspecified reasons; K62.5 Hemorrhage of anus and rectum; K57.90 Diverticulosis of intestine, part unspecified, without perforation or abscess without bleeding; K59.01 Slow transit constipation; K21.9 Gastro-esophageal reflux disease without esophagitis; K52.9 Noninfective gastroenteritis and colitis, unspecified; R14.0 Abdominal distension (gaseous)
CPT/HCPCS: 99213; G2211

== ENCOUNTER → 2024-08-22 09:52 | Outpatient (BNVA) | payer MEDICARE, OTHER, SELFPAY | PROVIDERS: PCP Internal Medicine; Visit Provider Nurse Practitioner Family | DX: Z00.00 Encounter for general adult medical examination without abnormal findings (principal); R78.71 Abnormal lead level in blood; R97.20 Elevated prostate specific antigen [PSA]; M51.369 Other intervertebral disc degeneration, lumbar region without mention of lumbar back pain or lower extremity pain; I10 Essential (primary) hypertension; E66.3 Overweight; N40.0 Benign prostatic hyperplasia without lower urinary tract symptoms; R20.0 Anesthesia of skin; R20.2 Paresthesia of skin; Z77.29 Contact with and (suspected) exposure to other hazardous substances; R19.5 Other fecal abnormalities; K62.5 Hemorrhage of anus and rectum; K57.90 Diverticulosis of intestine, part unspecified, without perforation or abscess without bleeding; K59.01 Slow transit constipation; K21.9 Gastro-esophageal reflux disease without esophagitis; K52.9 Noninfective gastroenteritis and colitis, unspecified; R14.0 Abdominal distension (gaseous) | CPT/HCPCS: 96127; 99212; 99397 ==

== ENCOUNTER 2024-08-22 12:10 | Outpatient (AMB) | payer MEDICARE, OTHER, SELFPAY ==
[2024-08-22 12:25] VITALS: BP 140/86; PULSE 72; O2SAT 96; BMI 30.3
--- NOTE | 2024-08-22 12:25 | MHC.PC.OV ---
Vital Signs 08/22/24 12:25 Height 5 ft 11 in Weight 217 lb 4 oz BMI 30.3 BP 140/86 H Blood Pressure Location Lt brachial Position Sitting Pulse 72 Pulse Source Pulse Oximeter Pulse Oximetry (%) 96 Oxygen Delivery Method Room Air Intake Visit Reasons: Annual Exam Allergies bee venom protein (honey bee) Allergy (Intermediate, Verified 08/22/24 12:29) Itching house dust Allergy (Mild, Verified 08/22/24 12:29) Itching Seasonal Allergies Allergy (Mild, Verified 08/22/24 12:29) Runny Nose Medication List - Last Reconciled 08/22/24 by Angelita Olsen MD atenolol 50 mg PO DAILY dutasteride 0.5 mg PO DAILY epinephrine 0.3 mg (0.3 mL) IM ONCE PRN hydrocortisone 2.5% (Proctosol HC) 1 appl KS BID-QID PRN nifedipine ER 90 mg PO DAILY polyethylene glycol 3350 (Miralax) 17 grams PO DAILY tamsulosin 0.8 mg (2 x 0.4 mg) PO DAILY Tobacco use date assessed: 08/22/24 Fall risk assessment: No Falls in past year Last assessed Fall Risk: 08/22/24 Dental Screening Dental Screen Date: 08/22/24 Did you have a dental visit in the last 12 months?: Yes Did you have a dental problem in the last 6 months where you did not have access to dental care?: No Was dental information given to patient?: Patient has dentist HPI Annual Exam HPI Details The patient is a 73-year-old male presenting with concerns regarding lumbar degenerative disc disease and essential hypertension management. The lumbar degenerative disc disease has been evaluated by multiple specialists, including neurosurgeons, with recommendations for minimally invasive procedures, though the patient has been mostly asymptomatic concerning pain. The patient has declined nerve conduction studies due to the discomfort involved. Electrophysiological studies indicated some abnormalities, although no surgical intervention is currently deemed necessary. The patient mentioned utilizing physical therapy previously without resolution. Additionally, he reported numbness and tingling primarily in the left leg post-appendix surgery, which was compounded by the use of the antibiotic levofloxacin. The patient has essential hypertension, indicated by high blood pressure readings at the office visit, although he does not routinely monitor blood pressure at home. No anti-hypertensive medication adjustments were noted at the visit. Fatty liver disease was identified through recent ultrasound imaging. The patient has a history of elevated cholesterol levels, contributing to this condition. He acknowledges a reduction in physical activity due to back pain and has a stable weight. - Discussed the importance of blood pressure management and home monitoring. - Recommendations to reduce dietary animal protein and increase plant protein intake. - Encouraged regular exercise to manage weight effectively. - Provided anticipatory guidance on reducing alcohol consumption. - Advised to maintain hydration with 6-8 glasses of water daily. 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 - Consumes vodka martinis daily. - Former smoker with no current cessation plan but expressed interest in quitting. - Reports reduced physical activity and cessation of bowling due to back issues. - Vision: Reports no current issues, though past concern with cataracts and detached retina. - Respiratory: Denies regular issues but notes functional impact from excess weight on lung capacity. - Gastrointestinal: Reports history of fatty liver. - Musculoskeletal: Denies pain but acknowledges left leg numbness and tingling. - Labs: Previous labs indicate elevated cholesterol and glucose, lead and cadmium at high normal levels. - Imaging: Recent ultrasounds confirmed fatty liver presence. - Other Tests: Electrophysiological studies showed abnormalities without conclusive diagnosis. COUNTS INCLUDE 234 BEDS AT THE [facility] Medical History Detached retina Colon cancer screening Diverticulosis Surgical History History of cataract surgery History of appendectomy Perforated appendix Social [facility] Alcohol intake: current Comment: daily 2 drinks vodka chloei Patient Tobacco Use Status: Current everyday Tobacco user Tobacco use type: Cigarette Cigarette Packs Per Day: 0.5 Years Smoked: 1/2 pack a day since 14 years old e-Cigarette/Vaping Use: Never Used Second Hand Smoke Exposure: Yes service: No Current occupational status: retired Cognitive needs: No Hearing needs: No Vision needs: No Questionnaire PHQ-9 Over the last 2 weeks, how often have you been bothered by any of the following problems? 1. Little interest or pleasure in doing things: not at all 2. Feeling down, depressed, or hopeless: not at all 3. Trouble falling or staying asleep, or sleeping too much: not at all 4. Feeling tired or having little energy: not at all 5. Poor appetite or overeating: not at all 6. Feeling bad about yourself - or that you are a failure or have let yourself or your family down: not at all 7. Trouble concentrating on things, such as reading the newspaper or watching television: not at all 8. Moving or speaking so slowly that other people could have noticed. Or the opposite - being so fidgety or restless that you have been moving around a lot more than usual: not at all 9. Thoughts that you would be better off or of hurting yourself in some way: not at all Total score: 0 Depression Screening Interpretation: Negative Depression Screening Done: Yes 31868 - PHQ-9 Billing: Yes Source: Developed by Drs. Srinivas Moody, Angely Knox, Bryn Willard and colleagues, with an educational jose from [employer]. Thrive Questionnaire Date Thrive assessed: 08/15/24 I am a: Patient What is your living situation today?: I have a steady place to live Within the past 12 months, did the food you bought not last and you didn't have the money to get more?: Never true Within the past 12 months, did you worry whether your food would run out before you got money to buy more?: Never true Do you have trouble paying for medicines?: No Do you have trouble getting transportation to medical appointments?: No Do you have trouble paying your heating and electricity bill?: No Do you have trouble taking care of your child, family member or friend?: No Do you have trouble with day-to-day activities such as bathing, preparing meals, shopping, managing finances, etc.?: No Are you currently unemployed and looking for a job?: No Are you interested in more education?: No Please select the resources that you would like help with: None Currently or been in a relationship where the following occur: No concerns reported THRIVE Score: 0 AUDIT C Alcohol Use Questionnaire (AUDIT-C) 1. How often do you have a drink containing alcohol?: 4 or more times a week 2. How many drinks containing alcohol do you have on a typical day when you are drinking?: 1 or 2 3. How often do you have six or more drinks on one occasion?: Never Total Score: 4 ERENDIRA-7 AMB Questionnaire ERENDIRA-7 Date ERENDIRA - 7 assessed: 08/22/24 Feeling nervous, anxious, or on edge: 0 = Not at all Not being able to stop or control worryin = Not at all Worrying too much about different things: 0 = Not at all Trouble relaxin = Not at all Being so restless that it is hard to sit still: 0 = Not at all Becoming easily annoyed or irritable: 0 = Not at all Feeling afraid as if something awful might happen: 0 = Not at all Total ERENDIRA-7 score (0-4 normal; 5-9 mild; 10-14 moderate; 15-21 severe): 0 Source: Developed by Drs. Srinivas Moody, Angely Knox, Bryn Willard and colleagues, with an educational jose from [employer]. ERENDIRA-7 Assessment Billing ERENDIRA-7 Assessment Tool: ERENDIRA-7 Assessment 39715 Review of Systems Const Denies poor appetite and Denies weakness Eyes Denies no additional complaints ENT Reports Normal hearing present, Denies dizziness, Denies nasal congestion, Denies tinnitus and Denies sore throat Card Denies chest pain, Denies syncope, Denies rapid heart rate and Denies dyspnea Resp Denies cough and Denies dyspnea GI Denies change in stool character, Reports constipation, Denies diarrhea, Denies nausea and Denies vomiting Denies dysuria and Denies urinary frequency Neuro Reports Normal hearing present, Denies confusion, Denies dizziness, Denies syncope and Denies weakness Psych Denies confusion Physical exam (Primary Care) Vital Signs: Last Vital Signs Pulse 72 08/22/24 12:25 BP 140/86 H 08/22/24 12:25 Pulse Ox 96 08/22/24 12:25 Oxygen Delivery Method Room Air 08/22/24 12:25 BMI result Body Mass Index 30.3 Tobacco/Smoking Status: Tobacco use Status Tobacco use date assessed 08/22/24 08/22/24 12:30 Patient Tobacco Use Status Current everyday Tobacco 08/22/24 12:30 Tobacco use type Cigarette 08/22/24 12:30 e-Cigarette/Vaping Use Never Used 08/22/24 12:30 PHQ-9: PHQ-9 Score PHQ-9: Total score 0 08/22/24 12:41 Depression Screening Interpretation: Negative Thrive Assessment: Date of Thrive Assessment Date Thrive assessed 08/15/24 08/22/24 12:30 Currently or been in a relationship where the following occur: No concerns reported Const General: No confusion Orientation/consciousness: No confusion HENMT Head: Yes normocephalic Ears: external ears normal and TM's normal bilaterally Face and sinus: Yes normal facial exam Mouth: moist mucous membranes Throat: Yes tonsils normal Eyes Conjunctivae: conjunctivae normal Pupils: Equal, round and reactive pupils present and Pupil accommodation reflex normal Direct Ophthalmoscopy: normal light reflex Neck Neck: No lymphadenopathy Thyroid: Thyroid normal Chest Chest palpation & inspection: normal inspection of the chest Resp Effort & Inspection: normal respiratory effort and no audible wheezes Auscultation: clear to auscultation bilaterally, no crackles, no wheezes and lung sounds not diminished Cardio Rate: regular rate Rhythm: regular rhythm Peripheral pulses: radial pulses present and dorsalis pedis present GI Other: declined Palpation (GI): no masses Auscultation: normal bowel sounds and normoactive bowel sounds Rectal Exam - Male: Yes deferred Other: declined Skin General skin exam: no rashes or lesions noted Rashes: no rashes Neuro General: No confusion Cranial nerves: Yes Equal, round and reactive pupils present and Yes Normal hearing present Cognition (Neuro): normal cognition Gait exam (Neuro): Normal gait present Motor exam (neuro): 5/5 motor strength present throughout Deep tendon reflexes (DTR's): Right brachioradialis reflex intensity grade: 2+, Left brachioradialis reflex intensity grade: 2+, Right patellar reflex intensity grade: 2+ and Left patellar reflex intensity grade: 2+ Extrem General: No edema Coding Level of Care Code Est Pt Prev Care >65y(18752) Diagnoses Annual physical exam Z00.00 Elevated blood lead level R78.71 Exposure to cadmium Z77.29 Elevated PSA R97.20 Lumbar degenerative disc disease M51.36 Hypertension I10 Overweight (BMI 25.0-29.9) E66.3 BPH (benign prostatic hyperplasia) N40.0 Numbness and tingling of left lower extremity R20.0; R20.2 Additional Codes ERENDIRA-7 Assessment Billing - ERENDIRA-7 Assessment Tool: ERENDIRA-7 Assessment 48724 ([id number]) PHQ-9 - 89090 - PHQ-9 Billing: Yes ([id number]) Assessment & Plan Assessment & Plan (1) Annual physical exam: Code(s): Z00.00 - Encounter for general adult medical examination without abnormal findings Category: Medical (2) Elevated blood lead level: Code(s): R78.71 - Abnormal lead level in blood Category: Medical (3) Exposure to cadmium: Code(s): Z77.29 - Contact with and (suspected) exposure to other hazardous substances Category: Medical (4) Elevated PSA: Code(s): R97.20 - Elevated prostate specific antigen [PSA] Category: Medical (5) Lumbar degenerative disc disease: Comment: MRI done 06/2022 moderate L neural foraminal narrowing L5-S 1 crowding L L5 nerve root Code(s): M51.36 - Other intervertebral disc degeneration, lumbar region Category: Medical (6) Hypertension: Code(s): I10 - Essential (primary) hypertension Category: Medical Plan: blood pressure is high here (7) Overweight (BMI 25.0-29.9): Code(s): E66.3 - Overweight Category: Medical (8) BPH (benign prostatic hyperplasia): Code(s): N40.0 - Benign prostatic hyperplasia without lower urinary tract symptoms Category: Medical (9) Numbness and tingling of left lower extremity: Code(s): R20.0 - Anesthesia of skin; R20.2 - Paresthesia of skin Category: Medical Plan - Recommending home blood pressure monitoring and initiation of dietary and lifestyle modifications to manage hypertension. - Referral to [facility] for neurology consultation for further evaluation of leg symptoms and neurological status. - Encourage cessation of alcohol and revisit strategies for smoking cessation. - Continued management and monitoring of fatty liver disease through diet and exercise. - Encourage regular follow-up for management of hyperlipidemia and associated systemic effects. - Await further lab results for comprehensive analysis and adjustments. During our discussion, I emphasized the importance of managing hypertension by consistently monitoring blood pressure at home and making dietary adjustments to include more plant-based proteins. We discussed the referral to [facility] for a neurology consult to further assess the neuromuscular issues with his left leg, following the inconclusive results of previous assessments and interventions. I also addressed the risks associated with continued alcohol consumption and smoking, recommending cessation strategies. We reviewed his lab results and discussed implications, stressing the need to focus on diet and weight management due to the fatty liver diagnosis. Vaccine opportunities and their importance were briefly noted. Follow-up and further testing will be coordinated based on his current laboratory data and upcoming consultation evaluations. Additionally, guidance was provided about current viral infection prevention measures during the holiday season. - Begin routine home blood pressure monitoring. - Reduce alcohol intake and consider structured smoking cessation plans. - Maintain a balanced diet with more plant-based proteins and regular water intake. - Engage in manageable physical activity to support weight management. - Follow up with the neurologist as directed for further evaluation. - Be vigilant with hand sanitation, especially in preventing seasonal viral infections. - Monitor and report any concerning symptoms promptly. - Continue prescribed medications and dietary recommendations for hyperlipidemia. Orders: Referrals Neurology Referral R20.0 - Anesthesia of skin, R20.2 - Paresthesia of skin
== END 2024-08-22 13:14 | disposition home or self-care (01) ==
PROVIDERS: PCP Internal Medicine; Visit Provider Internal Medicine
DX: Z00.00 Encounter for general adult medical examination without abnormal findings (principal); R78.71 Abnormal lead level in blood; Z77.29 Contact with and (suspected) exposure to other hazardous substances; R97.20 Elevated prostate specific antigen [PSA]; M51.369 Other intervertebral disc degeneration, lumbar region without mention of lumbar back pain or lower extremity pain; I10 Essential (primary) hypertension; E66.3 Overweight; N40.0 Benign prostatic hyperplasia without lower urinary tract symptoms; R20.0 Anesthesia of skin; R20.2 Paresthesia of skin

== ENCOUNTER 2025-02-22 11:44 | Outpatient (AMB) | payer MEDICARE, OTHER, SELFPAY ==
--- NOTE | 2025-02-22 11:57 | MHC.OFFVIS ---
Vital Signs 02/22/25 12:03 Height 5 ft 11 in Weight 212 lb BMI 29.6 BP 138/64 Blood Pressure Location Rt brachial Position Sitting Pulse 68 Pulse Source Pulse Oximeter Pulse Oximetry (%) 99 Oxygen Delivery Method Room Air Intake Visit Reasons: 6 mo FU. Intake Note: Est pt for mgmt of GERD. CC; C.O. medication concerns / questions. Pt has stopped taking his miralax and has started taking 5 mg tablets of dulcolax PRN. Would like to discuss a few questions regarding that topic. Analytics Analyst Required: No Accompanied by: Self / Same As Patient Allergies bee venom protein (honey bee) Allergy (Intermediate, Verified 02/22/25 12:05) Itching house dust Allergy (Mild, Verified 02/22/25 12:05) Itching Seasonal Allergies Allergy (Mild, Verified 02/22/25 12:05) Runny Nose HPI HPI 6 mo FU.: Details: LAST VISIT Positive colorectal cancer screening using Cologuard test Colonoscopy refused Rectal bleed Diverticulosis Constipation GERD (gastroesophageal reflux disease) Postprandial diarrhea Postprandial abdominal bloating Plan Ask patient again to see if he is willing to go for colonoscopy in [facility] declines. Continue avoiding dietary triggers and late night snacking. Normal ultrasound except for fatty liver. Patient will try to go to the gym and exercise. Avoid fatty food. Low-salt, low carb and high-protein diet recommended. Follow-up in 6 months, sooner on as needed basis. Patient is agreeable to this plan and verbalizes understanding of instructions. He was given the opportunity to ask questions and all questions answered. TODAY'S VISIT Patient is here today for follow-up. Patient reports that she continues to have abdominal bloating. Reports that he stopped taking MiraLax daily however he is taking Dulcolax 1 tablet every other day or daily as needed. Patient reports right upper quadrant and left upper quadrant pain as well as back pain. Denies melena, hematochezia, unintentional weight loss or ribbon like stools. Patient reports that he has been going to the gym and doing by exercises, however due to his back pain he is unable to do much. He is trying to change his diet trying to eat healthier. Denies dyspepsia, dysphagia or odynophagia. Discussed again with patient the importance of him going for colonoscopy. Patient reports that he had 1 when he was 49 and he said that he will never get another colonoscopy again. Explained to patient that lasts of things change since he had procedure last. Easier prep and anesthesia making things much easier [facility] Medical History Detached retina Colon cancer screening Diverticulosis Surgical History History of cataract surgery History of appendectomy Perforated appendix Social History [facility] Alcohol intake: current Comment: daily 2 drinks vodkalli greer Patient Tobacco Use Status: Current everyday Tobacco user Tobacco use type: Cigarette Cigarette Packs Per Day: 0.5 Years Smoked: 1/2 pack a day since 14 years old e-Cigarette/Vaping Use: Never Used Second Hand Smoke Exposure: Yes service: No Current occupational status: retired Cognitive needs: No Hearing needs: No Vision needs: No Review of Systems Const Denies weight gain and Denies weight loss ENT Reports no additional complaints, Denies dysphagia and Denies odynophagia Card Reports no additional complaints Resp Reports no additional complaints GI Reports abdominal pain (RUQ, Back), Denies belching, Denies melena, Reports bloating, Denies change in bowel habits, Reports constipation, Denies dysphagia, Denies excessive flatus, Denies dyspepsia, Denies heartburn, Denies diarrhea, Denies loose stools, Denies nausea, Denies odynophagia and Denies vomiting Reports no additional complaints Musc Reports no additional complaints Neuro Reports no additional complaints Psych Reports no additional complaints Endo Reports no additional complaints Physical Exam Vital Signs: Last Vital Signs Pulse 68 02/22/25 12:03 BP 138/64 02/22/25 12:03 Pulse Ox 99 02/22/25 12:03 Oxygen Delivery Method Room Air 02/22/25 12:03 BMI result Body Mass Index 29.6 Const General: no acute distress Nutritional Appearance: obese Orientation/consciousness: patient oriented x3 Resp Effort & Inspection: normal respiratory effort, able to speak in complete sentences, no tracheal deviation and symmetric chest movement Auscultation: clear to auscultation bilaterally Cardio Rate: regular rate GI Inspection: Yes normal to inspection, No distended and Yes obesity Palpation (GI): Soft to palpation, not firm, nontender and No hepatosplenomegaly present Auscultation: normal bowel sounds General: Yes no CVA tenderness Back/Spine/Pelvis Back: no CVA tenderness Skin General skin exam: elasticity normal, turgor normal and dry skin Neuro General: patient oriented x3 Psych Appearance: grossly normal Mental Status: mental status grossly normal Assessment & Plan Assessment & Plan (1) Colonoscopy refused: Code(s): Z53.20 - Procedure and treatment not carried out because of patient's decision for unspecified reasons Category: Medical (2) Diarrhea: Code(s): R19.7 - Diarrhea, unspecified Category: Medical Qualifiers: Diarrhea type: functional diarrhea Qualified Code(s): K59.1 - Functional diarrhea (3) Hiatal hernia: Code(s): K44.9 - Diaphragmatic hernia without obstruction or gangrene Category: Medical (4) Constipation: Code(s): K59.00 - Constipation, unspecified Qualifiers: Constipation type: slow transit constipation Qualified Code(s): K59.01 - Slow transit constipation (5) Postprandial abdominal bloating: Code(s): R14.0 - Abdominal distension (gaseous) Plan Discussed with patient the importance of taking fiber. Patient will try Metamucil 3 in 1 fiber supplement daily. He will continue taking Dulcolax as needed. Continue avoiding dietary triggers. Eating smaller meals more often. Avoiding eating late at night. Staying upright for minimal 3 hours after meals discussed with patient. Follow-up in 2 months. Long discussion with patient about colonoscopy and trying to convince him to agree to it. Patient reports his times he will think about it and let us know next visit. He is agreeable to for plan of care and verbalizes understanding of instructions. He was given the of the above questions and all questions answered. Thank you for allowing me to participate in his care Coding Level of Care Code Est Pt Level 3 (86237) Diagnoses Colonoscopy refused Z53.20 Functional diarrhea K59.1 Diarrhea type: functional diarrhea Hiatal hernia K44.9 Slow transit constipation K59.01 Constipation type: slow transit constipation Postprandial abdominal bloating R14.0 Time Spent (min) 30 Comment 20 minutes spent with patient and additional 10 minutes spent reviewing her records
[2025-02-22 12:03] VITALS: BP 138/64; PULSE 68; O2SAT 99; BMI 29.6
--- OUTSIDE RECORDS SUMMARY | 2025-02-22 12:32 | XMS_ITS | Clinical Summary ---
Author Organization [employer] Address [address] [facility] 7[address] [place] [address] Care Team Providers Care Byproduct Engineer Name Role Phone Unavailable Primary Care Provider Unavailabl e Allergies Active Allergy Reactions Criticality Noted Date Comments Bee Venom 03/27/2023 Dust Mite Extract 03/27/2023 Pollen Extract 03/27/2023 Medications tamsulosin (Flomax) 0.4 MG 24 hr capsule 03/21/2023 Activ e finasteride (Proscar) 5 MG tablet Take 5 mg by mouth in the morning. 12/20/2022 Active atenolol (Tenormin) 50 MG tablet Take 50 mg by mouth in the morning. 02/11/2023 Active NIFEdipine CC (Adalat CC) 90 MG 24 hr tablet Take 90 mg by mouth in the morning. 01/09/2023 Active Active Problems Problem Noted Date Diagnosed Date Dental caries 04/23/2023 Social History Tobacco Use Types Packs/Day Years Used Date Smoking Tobacco: Every Day Cigarettes 0.5 50 Smokeless Tobacco: Never Tobacco Cessation:Ready to Q uit: No; Counseling Given: No Alcohol Use Standard Drinks/Week Comments Yes 2 (1 standard drink = 0.6 oz pur e alcohol) 2 vodka drinks daily Sex and Gender Information Value Date Recorded Sex Assigned at Male 03/27/2023 2:17 PM EDT Legal Sex Male 2:15 PM EDT Gender Identity Male 03/27/2023 2:17 PM EDT Sexual Orientation Choose not to disclose 2022 2:17 PM EDT Last Filed Vital Signs Vital Sign Reading Time Taken Comments Blood Pressure 129/69 02/24/2024 3:35 PM EDT Pulse 64 02/24/2024 3:35 PM EDT Temperature 36.8 C (98.3 F) 02/24/2024 3:35 PM EDT Respiratory Rate - - Oxygen Saturation - - Inhaled Oxygen Concentration - - Weight - - Height - - Body Mass Index - - Plan of Treatment Health Maintenance Due Date Last Done Comments CT Colonography 1949 Colonoscopy 1949 Colorectal Cancer Screening 1949 Dental Oral Exam 1949 Dental Prophylaxis 1949 Dental X-Ray: Bitewings 1949 Depression Screening 1949 FIT DNA/Cologuard 1949 FIT 1949 FOBT 1949 Lipid Panel 1949 SDOH Screening 1949 Sigmoidoscopy 1949 Alcohol/Substance Use Screening 1961 Hepatitis C Screening 10/26/1967 Pneumococcal Vaccine: 50+ Ye ars (1 of 2 - PCV) 1968 Lung Cancer Screening 10/26/1999 Zoster Vaccines (1 of 2) 10/26/1999 DTaP/Tdap/Td Vaccines (2 - T d or Tdap) 01/06/2022 01/07/2012 COVID-19 Vaccine ( - 2023-2 5 season) 2024 RSV Patients and Pa tients Aged 60 years or older (1 - 1-dose 75+ series) 2024 Tobacco Screening 02/23/2025 02/24/2024 Influenza Vaccine (Season Ended) 2025 Dental X-Ray: Full Mouth 04/16/2026 04/15/2023 HIB Vaccines Aged Out No longer eligi ble based on patient's age to complete this topic HPV Vaccines Aged Out No longer eligi ble based on patient's age to complete this topic Hepatitis A Vaccines Aged Out No long er eligible based on patient's age to complete this topic Hepatitis B Vaccines Aged Out No long er eligible based on patient's age to complete this topic IPV Vaccines Aged Out No longer eligi ble based on patient's age to complete this topic Meningococcal B Vaccine Aged Out No l onger eligible based on patient's age to complete this topic Meningococcal Vaccine Aged Out No devang navneet eligible based on patient's age to complete this topic RSV under 20 months Aged Out No longe r eligible based on patient's age to complete this topic Rotavirus Vaccines Aged Out No longer eligible based on patient's age to complete this topic Procedures Procedure Name Priority Date/Time Associated Diagnosis Comments PANORAMIC RADIOGRAPHIC IMAGE Routine 04/15/2023 11:00 AM EDT from Last 3 Months or Most Recently Relevant to Health Maintenance Insurance [place] [id number] [facility] Address: [facility] [address] [place] [address]
== END 2025-02-22 12:36 | disposition home or self-care (01) ==
LOC: HO.HGI 11:45
PROVIDERS: PCP Internal Medicine; Visit Provider Nurse Practitioner Family
DX: Z53.20 Procedure and treatment not carried out because of patient's decision for unspecified reasons (principal); K59.1 Functional diarrhea; K44.9 Diaphragmatic hernia without obstruction or gangrene; K59.01 Slow transit constipation; R14.0 Abdominal distension (gaseous)
CPT/HCPCS: 99213

== ENCOUNTER → 2025-02-22 11:44 | Outpatient (BNVA) | payer MEDICARE, OTHER, SELFPAY | PROVIDERS: PCP Internal Medicine; Visit Provider Nurse Practitioner Family | DX: Z53.20 Procedure and treatment not carried out because of patient's decision for unspecified reasons (principal); K59.1 Functional diarrhea; K44.9 Diaphragmatic hernia without obstruction or gangrene; K59.01 Slow transit constipation; R14.0 Abdominal distension (gaseous) | CPT/HCPCS: 99212 ==

== ENCOUNTER 2025-04-13 12:48 | Outpatient (AMB) | payer MEDICARE, OTHER, SELFPAY ==
[2025-04-13 12:56] VITALS: BP 136/68; PULSE 66; TEMP 36.1; O2SAT 96; BMI 28.9
--- NOTE | 2025-04-13 12:56 | A.OFFPC_ITS ---
Vital Signs 04/13/25 12:56 Height 5 ft 11 in Weight 207 lb BMI 28.9 BP 136/68 Blood Pressure Location Lt brachial Position Sitting Pulse 66 Pulse Source Pulse Oximeter Temp 97.0 F Temp Source Temporal Artery Scan Pulse Oximetry (%) 96 Oxygen Delivery Method Room Air Intake Visit Reasons: Dr. Srinivas Kelly Cataract 05/16 Allergies bee venom protein (honey bee) Allergy (Intermediate, Verified 04/13/25 13:01) Itching house dust Allergy (Mild, Verified 04/13/25 13:01) Itching Seasonal Allergies Allergy (Mild, Verified 04/13/25 13:01) Runny Nose Medication List - Last Reconciled 04/13/25 by Angelita Olsen MD atenolol 50 mg PO DAILY bisacodyl (Dulcolax (bisacodyl)) 5 mg PO BEDTIME dutasteride 0.5 mg PO DAILY epinephrine 0.3 mg (0.3 mL) IM ONCE PRN hydrocortisone 2.5% (Proctosol HC) 1 appl ME BID-QID PRN nifedipine ER 90 mg PO DAILY [sliperry elm 1 cap PO .QD] tamsulosin 0.8 mg (2 x 0.4 mg) PO DAILY Tobacco use date assessed: 04/13/25 Fall risk assessment: No Falls in past year Last assessed Fall Risk: 04/13/25 Dental Screening Dental Screen Date: 04/13/25 Did you have a dental visit in the last 12 months?: Yes Did you have a dental problem in the last 6 months where you did not have access to dental care?: No Was dental information given to patient?: Patient has dentist [facility] Medical History Detached retina Colon cancer screening Diverticulosis Surgical History History of cataract surgery History of appendectomy Perforated appendix Social History Housing: Condominium Alcohol intake: current Comment: daily 2 drinks vodka percy Patient Tobacco Use Status: Current everyday Tobacco user Tobacco use type: Cigarette Cigarette Packs Per Day: 0.5 Years Smoked: 1/2 pack a day since 14 years old Packs Per Year: 0 e-Cigarette/Vaping Use: Never Used Second Hand Smoke Exposure: Yes service: No Current occupational status: retired Cognitive needs: No Hearing needs: No Vision needs: No Questionnaire PHQ-9 Over the last 2 weeks, how often have you been bothered by any of the following problems? 1. Little interest or pleasure in doing things: not at all 2. Feeling down, depressed, or hopeless: not at all 3. Trouble falling or staying asleep, or sleeping too much: not at all 4. Feeling tired or having little energy: not at all 5. Poor appetite or overeating: not at all 6. Feeling bad about yourself - or that you are a failure or have let yourself or your family down: not at all 7. Trouble concentrating on things, such as reading the newspaper or watching television: not at all 8. Moving or speaking so slowly that other people could have noticed. Or the opposite - being so fidgety or restless that you have been moving around a lot more than usual: not at all 9. Thoughts that you would be better off or of hurting yourself in some way: not at all Total score: 0 Depression Screening Interpretation: Negative Depression Screening Done: Yes 77347 - PHQ-9 Billing: Yes Source: Developed by Drs. Srinivas Moody, Angely Knox, Bryn Willard and colleagues, with an educational jose from [employer]. Thrive Questionnaire Date Thrive assessed: 04/13/25 I am a: Patient What is your living situation today?: I have a steady place to live Within the past 12 months, did the food you bought not last and you didn't have the money to get more?: Never true Within the past 12 months, did you worry whether your food would run out before you got money to buy more?: Never true Do you have trouble paying for medicines?: No Do you have trouble getting transportation to medical appointments?: No Do you have trouble paying your heating and electricity bill?: No Do you have trouble taking care of your child, family member or friend?: No Do you have trouble with day-to-day activities such as bathing, preparing meals, shopping, managing finances, etc.?: No Are you currently unemployed and looking for a job?: No Are you interested in more education?: No Please select the resources that you would like help with: None Currently or been in a relationship where the following occur: No concerns reported THRIVE Score: 0 AUDIT C Alcohol Use Questionnaire (AUDIT-C) 1. How often do you have a drink containing alcohol?: 2-3 times a week 2. How many drinks containing alcohol do you have on a typical day when you are drinking?: 1 or 2 3. How often do you have six or more drinks on one occasion?: Never Total Score: 3 ERENDIRA-7 AMB Questionnaire ERENDIRA-7 Date ERENDIRA - 7 assessed: 04/13/25 Feeling nervous, anxious, or on edge: 0 = Not at all Not being able to stop or control worryin = Not at all Worrying too much about different things: 0 = Not at all Trouble relaxin = Not at all Being so restless that it is hard to sit still: 0 = Not at all Becoming easily annoyed or irritable: 0 = Not at all Feeling afraid as if something awful might happen: 0 = Not at all Total ERENDIRA-7 score (0-4 normal; 5-9 mild; 10-14 moderate; 15-21 severe): 0 Source: Developed by Drs. Srinivas Moody, Angely Knox, Bryn Willard and colleagues, with an educational jose from [employer]. ERENDIRA-7 Assessment Billing ERENDIRA-7 Assessment Tool: ERENDIRA-7 Assessment 80802 Review of Systems Const Denies poor appetite and Denies weakness Eyes Denies no additional complaints ENT Reports Normal hearing present, Denies dizziness, Denies nasal congestion, Denies tinnitus and Denies sore throat Card Denies chest pain, Denies syncope, Denies rapid heart rate and Denies dyspnea Resp Denies cough and Denies dyspnea GI Denies change in stool character, Reports constipation, Denies diarrhea, Denies nausea and Denies vomiting Denies dysuria and Denies urinary frequency Neuro Reports Normal hearing present, Denies confusion, Denies dizziness, Denies syncope and Denies weakness Psych Denies confusion Physical exam (Primary Care) Vital Signs: Last Vital Signs Temp 97.0 F 04/13/25 12:56 Pulse 66 04/13/25 12:56 BP 136/68 04/13/25 12:56 Pulse Ox 96 04/13/25 12:56 Oxygen Delivery Method Room Air 04/13/25 12:56 BMI result Body Mass Index 28.9 Tobacco/Smoking Status: Tobacco use Status Tobacco use date assessed 04/13/25 04/13/25 13:02 Patient Tobacco Use Status Current everyday Tobacco 04/13/25 12:59 Tobacco use type Cigarette 04/13/25 12:59 e-Cigarette/Vaping Use Never Used 04/13/25 12:59 PHQ-9: PHQ-9 Score PHQ-9: Total score 0 04/13/25 13:19 Depression Screening Interpretation: Negative Thrive Assessment: Date of Thrive Assessment Date Thrive assessed 04/13/25 04/13/25 12:59 Currently or been in a relationship where the following occur: No concerns reported Const General: No confusion Orientation/consciousness: No confusion HENMT Head: Yes normocephalic Ears: external ears normal and TM's normal bilaterally Face and sinus: Yes normal facial exam Mouth: moist mucous membranes Throat: Yes tonsils normal Eyes Conjunctivae: conjunctivae normal Pupils: Equal, round and reactive pupils present and Pupil accommodation reflex normal Direct Ophthalmoscopy: normal light reflex Neck Neck: No lymphadenopathy Thyroid: Thyroid normal Chest Chest palpation & inspection: normal inspection of the chest Resp Effort & Inspection: normal respiratory effort and no audible wheezes Auscultation: clear to auscultation bilaterally, no crackles, no wheezes and lung sounds not diminished Cardio Rate: regular rate Rhythm: regular rhythm Peripheral pulses: radial pulses present and dorsalis pedis present GI Palpation (GI): no masses Auscultation: normal bowel sounds and normoactive bowel sounds Rectal Exam - Male: Yes deferred Skin General skin exam: no rashes or lesions noted Rashes: no rashes Neuro General: No confusion Cranial nerves: Yes Equal, round and reactive pupils present and Yes Normal hearing present Cognition (Neuro): normal cognition Gait exam (Neuro): Normal gait present Motor exam (neuro): 5/5 motor strength present throughout Deep tendon reflexes (DTR's): Right brachioradialis reflex intensity grade: 2+, Left brachioradialis reflex intensity grade: 2+, Right patellar reflex intensity grade: 2+ and Left patellar reflex intensity grade: 2+ Extrem General: No edema Coding Level of Care Code Est Pt Level 4 (33263) Complex EM visit Add On G2211 Diagnoses Preop exam for internal medicine Z01.818 Hypertension I10 Hypertriglyceridemia E78.1 Overweight (BMI 25.0-29.9) E66.3 BPH (benign prostatic hyperplasia) N40.0 Polycythemia D75.1 Peripheral neuropathy G62.9 Tobacco abuse Z72.0 Additional Codes ERENDIRA-7 Assessment Billing - ERENDIRA-7 Assessment Tool: ERENDIRA-7 Assessment 99927 ([id number]) PHQ-9 - 07269 - PHQ-9 Billing: Yes ([id number]) Assessment & Plan Assessment & Plan (1) Preop exam for internal medicine: Code(s): Z01.818 - Encounter for other preprocedural examination Category: Medical Plan: With the patient's age patient belongs to the intermediate risk category but with the low risk procedure no further workup needed at this time. Advised to continue with blood pressure medication atenolol nifedipine. (2) Hypertension: Code(s): I10 - Essential (primary) hypertension Category: Medical Plan: Continue with blood pressure medication. Decrease salt intake and exercise (3) Hypertriglyceridemia: Code(s): E78.1 - Pure hyperglyceridemia Category: Medical Plan: Avoid fried foods, chicken skin, eggs, butter margarine, pastries and meat. Be it pork or beef they have a lot of cholesterol (4) Overweight (BMI 25.0-29.9): Code(s): E66.3 - Overweight Category: Medical Plan: Diet and exercise (5) BPH (benign prostatic hyperplasia): Code(s): N40.0 - Benign prostatic hyperplasia without lower urinary tract symptoms Category: Medical Plan: Continue with tamsulosin (6) Polycythemia: Code(s): D75.1 - Secondary polycythemia Category: Medical (7) Peripheral neuropathy: Code(s): G62.9 - Polyneuropathy, unspecified Category: Medical (8) Tobacco abuse: Code(s): Z72.0 - Tobacco use Category: Medical Plan History of Present Illness The patient is a 74-year-old male presenting for a preoperative evaluation for cataract surgery. He has a history of hypertension, benign prostatic hyperplas ia, lumbar degenerative disc disease, and polycythemia. The patient reports a recent weight loss of 5 pounds, which he attributes to fasting and reduced food intake following a tooth extraction. He has been experiencing constipation and abdominal bloating, for which he takes Dulcolax and was advised to use Metamucil. The patient has a history of peripheral neuropathy, with intermittent numbness in both thighs, which he associates with a past perforated appendix treated in 2019. He underwent a nerve conduction test, which was normal, and has been advised to continue with further testing, although he is not ready to proceed. The patient has been advised to continue his current medications, including atenolol and nifedipine for hypertension, and tamsulosin for benign prostatic hyperplasia. He also takes slippery elm for gastroesophageal reflux disease (GERD). The patient has a history of smoking and consumes a vodka martini daily. He acknowledges that smoking may be contributing to his elevated red blood cell count and has been advised to quit smoking. Health Maintenance - Advised to quit smoking to manage polycythemia and improve overall health - Recommended to increase water intake to address dehydration concerns - Encouraged to maintain a healthy diet and exercise routine Social History - Substance Use: Smokes cigarettes and consumes a vodka martini daily - Exercise: Limited physical activity, previously more active before halfway - Nutrition: Recent weight loss due to fasting and reduced food intake following dental issues Review of Systems - Gastrointestinal: Reports abdominal bloating and constipation - Neurological: Reports intermittent numbness in both thighs - General: Reports recent weight loss of 5 pounds Physical Exam General: Cooperative, healthy appearing, comfortable, no acute distress and well developed Orientation: Patient oriented x3 Limitations: No limitations Head: Normal to inspection Ears: Hearing grossly normal bilaterally Nose: Normal external nose present Face and sinus: Normal facial exam Eyes: Appearance normal, both eyes and all related structures Neck: Normal visual inspection and Yes full ROM Respiratory: Normal respiratory effort and able to speak in complete sentences. Clear to auscultation bilaterally Cardiovascular: Regular rate and rhythm. Normal S1 and S2 GI: Normal to inspection. Soft to palpation and nontender Skin: No rashes or lesions noted Neuro: Patient oriented x3 Extremities: Normal to inspection Results - Labs: Hemoglobin 18.3, Hematocrit 55.9, indicating polycythemia - Labs: Mildly elevated alkaline phosphatase at 125, normal liver function tests - Labs: Normal blood sugar, kidney function, and electrolytes - Neurology: Normal MRI of the left thigh, lumbar spine with multilevel degenerative joint disease and mild neural foraminal stenosis Plan The patient is advised to continue with his current antihypertensive medications, atenolol and nifedipine, to manage his blood pressure effectively. For benign prostatic hyperplasia, he should continue taking tamsulosin. Given the elevated red blood cell count, a referral to a litigation legal secretary is recommended to rule out any underlying hematological disorders, with a suspicion that smoking may be contributing to the polycythemia. The patient is encouraged to quit smoking to potentially alleviate the polycythemia and improve overall health. For constipation, the patient should continue using Dulcolax and Metamucil as advised by the nurse educator. He is also advised to increase water intake to address dehydration concerns. An EKG is requested as part of the preoperative evaluation for cataract surgery to ensure cardiac stability during the procedure. Patient was informed and verbally consented to the use of an ambient scribe for clinic note documentation during this visit. Discussion Notes During the consultation, I discussed with the patient the importance of managing his hypertension with atenolol and nifedipine, and continuing tamsulosin for benign prostatic hyperplasia. We reviewed the elevated red blood cell count, and I explained the potential link to smoking, recommending a referral to a litigation legal secretary for further evaluation. I emphasized the need to quit smoking to improve his overall health and potentially reduce the polycythemia. For his gastrointestinal symptoms, I advised continuing Dulcolax and Metamucil and increasing water intake to prevent dehydration. We also discussed the need for an EKG as part of his preoperative evaluation for cataract surgery to ensure his heart can handle the procedure. Patient Instructions - Continue taking atenolol and nifedipine for blood pressure management. - Take tamsulosin as prescribed for BPH. - Use Dulcolax and Metamucil for constipation relief. - Increase water intake to prevent dehydration. - Quit smoking to improve health and reduce polycythemia risk. - Attend the scheduled EKG before cataract surgery. Orders: Orders ECG 12 lead EKG Today Z01.818 - Encounter for other preprocedural examination Referrals Hematology & Oncology Referral D75.1 - Secondary polycythemia
--- OUTSIDE RECORDS SUMMARY | 2025-04-13 13:07 | XMS_ITS | Clinical Summary ---
Author Organization [employer] Address [address] [facility] [address] [place] [address] Care Team Providers Care Processing Operator Name Role Phone Unavailable Primary Care Provider [...] ars (1 of 2 - PCV) 1968 Zoster Vaccines (1 of 2) 10/26/1999 DTaP/Tdap/Td Vaccines (2 - T d or Tdap) 01/06/2022 01/07/2012 COVID-19 Vaccine ( - 2023-2 5 season) 2024 RSV Patients and Pa tients Aged 60 years or older (1 - 1-dose 75+ series) 2024 Tobacco Screening 02/23/2025 02/24/2024 Influenza Vaccine (#1) 2025 Dental X-Ray: Full Mouth 04/16/2026 04/15/2023 [...] Recently Relevant to Health Maintenance Insurance MEDIC[place] [phone] [facility]
--- OUTSIDE RECORDS SUMMARY | 2025-04-13 13:07 | XMS_ITS | Clinical Summary ---
Author Organization [facility] Address [facility] [place] [address] Care Team Providers Care Last Turner Name Role Phone Angelita Olsen MD Primary Care Provider [phone] Allergies Active Allergy Reactions Criticality Noted Date Comments Bee Pollen 03/27/2023 Mite Extract 03/27/2023 Venom-Honey Bee 03/27/2023 Medications atenoloL (Tenormin) 50 mg tablet Take 50 mg by mouth daily. Active dutasteride (Avodart) 0.5 mg capsule Take 1 capsule by mouth Daily at Noon. 10/10/2024 Active NIFEdipine CC (Adalat CC) 90 mg ER tablet Take 90 mg by mouth daily. Active tamsulosin (Flomax) 0.4 mg capsule Take 2 capsules by mouth Daily at Noon. 12/28/2024 Active Social History Tobacco Use Types Packs/Day Years Used Date Smoking Tobacco: Every Day Cigarettes Tobacco Cessation:Ready to Q uit: Not Asked; Counseling Given: Not Answered Sex and Gender Information Value Date Recorded Sex Assigned at Not on file Legal Sex Male 3:28 PM EST Gender Identity Not on file Sexual Orientation Not on file Last Filed Vital Signs Vital Sign Reading Time Taken Comments Blood Pressure 157/82 01/05/2025 7:59 AM EDT Pulse 64 01/05/2025 7:59 AM EDT Temperature - - Respiratory Rate - - Oxygen Saturation 98% 01/05/2025 7:59 AM EDT Inhaled Oxygen Concentration - - Weight 95.3 kg (210 lb) 01/05/2025 7:59 AM EDT Height 180.3 cm (5' 11 ) 01/05/2025 7:59 AM EDT Body Mass Index 29.29 01/05/2025 7:59 AM EDT Plan of Treatment Upcoming Encounters Date Type Department Care Team (Late st Contact Info) Description 05/01/2025 1:00 PM EDT [place] [address] Александр Nguyen MD [facility] [address] Health Maintenance Due Date Last Done Comments CT Colonography 1949 Colonoscopy 1949 Colorectal Cancer Screening 1949 FIT DNA 1949 FIT 1949 Sigmoidoscopy (10 year) with FIT yearly 1949 Sigmoidoscopy 1949 Hepatitis C Screening 10/26/1967 Lipid Screening 10/26/1967 Pneumoccocal Vaccine: 50+ (1 of 2 - PCV) 1968 Tetanus/Diphtheria/Pertussis Vaccines (1 - Tdap) 10/25 Zoster vaccine (1 of 2) 10/26/1999 Advance Directive 2004 AAA Screen 2014 Covid-19 Vaccine (1 - 2023- season) 2024 RSV Vaccine (1 - 1-dose 75+ series) 2024 Influenza (Flu) vaccine (1 o f 1 - Influenza standard series) 04/24/2025 Insurance [id number] [place] [address] MEDICARE [employer] Care Teams Last Turner Relationship Specialty Start Date End Date Angelita Olsen MD [address] [place] [address] [place] [address] PCP - General Internal Medicine 09/05/24
--- OUTSIDE RECORDS SUMMARY | 2025-04-13 13:07 | XMS_ITS | Encounter Summary ---
Author Organization [facility] Address [address] [facility] [address] [place] [phone] Phone Care Team Providers Care Ladle Operator Name Role Phone Arash Bolanos MD Primary Care Provider + Encounter Details Date Type Department Care Team (Late st Contact Info) Description 04/07/2019 Documentation [facility] [address] [facility] 2nd [address], [address] [place] [address] Jeison Davis MD [address] [facility] [address] [place] [address] [email or web address] Social History Tobacco Use Types Packs/Day Years Used Date Smoking Tobacco: Never Assessed Sex and Gender Information Value Date Recorded Sex Assigned at Not on file Legal Sex Male 8:02 AM EDT Gender Identity Not on file Sexual Orientation Not on file documented as of this encounter Plan of Treatment Not on file documented as of this encounter Visit Diagnoses Not on filedocumented in this encounter Care Teams Ladle Operator Relationship Specialty Start Date End Date Arash Bolanos MD PCP - General Internal Medicine 03/04/19 documented as of this encounter Additional Source Comments The information contained in this document represents components of the legal health record. It is not the complete legal health record.[facility]
== END 2025-04-13 13:52 | disposition home or self-care (01) ==
LOC: HO.HMCH 12:49
PROVIDERS: PCP Internal Medicine; Visit Provider Internal Medicine
DX: Z01.818 Encounter for other preprocedural examination (principal); I10 Essential (primary) hypertension; E78.1 Pure hyperglyceridemia; E66.3 Overweight; N40.0 Benign prostatic hyperplasia without lower urinary tract symptoms; D75.1 Secondary polycythemia; G62.9 Polyneuropathy, unspecified; Z72.0 Tobacco use

== ENCOUNTER → 2025-04-13 12:48 | Outpatient (BNVA) | payer MEDICARE, OTHER, SELFPAY | PROVIDERS: PCP Internal Medicine; Visit Provider Internal Medicine | DX: Z01.818 Encounter for other preprocedural examination (principal); H26.9 Unspecified cataract; I10 Essential (primary) hypertension; E87.1 Hypo-osmolality and hyponatremia; E66.3 Overweight; Z68.28 Body mass index [BMI] 28.0-28.9, adult; N40.0 Benign prostatic hyperplasia without lower urinary tract symptoms; D75.1 Secondary polycythemia; G62.9 Polyneuropathy, unspecified; Z72.0 Tobacco use | CPT/HCPCS: 96127; 99212 ==

== ENCOUNTER → 2025-04-20 12:55 | Outpatient (REF) | payer MEDICARE, OTHER, SELFPAY ==
--- OUTSIDE RECORDS SUMMARY | 2025-04-18 09:00 | XMS_ITS | Encounter Summary ---
Author Organization [employer] Address [address] [place] [address] 7 [place] [address] Care Team Providers Care Director Of Operations Support Name Role Phone Unavailable Primary Care Provider Unavailabl e Reason for Visit * Reason Comments Dental Exam Has some teeth that may need to be worked on. Encounter Details Date Type Department Care Team (Late st Contact Info) Description 04/18/2025 9:00 AM EDT Office Visit [facility] DENTAL [address] [place] [address] Yoanna Talley LLD [address] [place] [address] Social History Tobacco Use Types Packs/Day Years Used Date Smoking Tobacco: Every Day Cigarettes 0.5 50 Smokeless Tobacco: Never Alcohol Use Standard Drinks/Week Comments Yes 2 (1 standard drink = 0.6 oz pur e alcohol) 2 vodka drinks daily Sex and Gender Information Value Date Recorded Sex Assigned at Male 03/27/2023 2:17 PM EDT Legal Sex Male 2:15 PM EDT Gender Identity Male 03/27/2023 2:17 PM EDT Sexual Orientation Choose not to disclose 2022 2:17 PM EDT documented as of this encounter Last Filed Vital Signs Vital Sign Reading Time Taken Comments Blood Pressure 149/80 04/18/2025 9:04 AM EDT Pulse 71 04/18/2025 9:04 AM EDT Temperature 36.8 C (98.3 F) 04/18/2025 9:04 AM EDT Respiratory Rate - - Oxygen Saturation - - Inhaled Oxygen Concentration - - Weight - - Height - - Body Mass Index - - documented in this encounter Progress Notes * JENIFFER Castillo - 04/18/2025 9:00 AM EDT Pt appointed for comp exam, however trouble with the xray software, contacted IT , could not take xray today. Just did a visual exam. And updated the chart Scheduled back for comp and restore appointment. documented in this encounter Plan of Treatment Upcoming Encounters Date Type Department Care Team (Late st Contact Info) Description 06/21/2025 7:30 AM EDT Office Visit [facility] DENTAL [address] [place] [phone] Yoanna Talley LLD [address] [place] [address] Scheduled Orders Name Type Priority Associated Diagnoses Orde r Schedule INTRAORAL - COMPLETE SERIES OF RADIOGRAPHIC IMAGES Dental Routine [address] arting 04/18/2025 COMPREHENSIVE ORAL EVALUATION - NEW OR ESTABLISHED PATIENT Dental Routine 1 Occurrence s starting 04/18/2025 23 I 23 I RESIN-BASED COMPOSITE - 1 SURF, ANTERIOR Dental Routine [address] arting 04/18/2025 8 DL 8 DL RESIN-BASED COMPOSITE - 2 SURF, ANTERIOR Dental Routine [address] arting 04/18/2025 7 M 7 M RESIN-BASED COMPOSITE - 1 SURF, ANTERIOR Dental Routine [address] arting 04/18/2025 6 F(V) 6 F(V) RESIN-BASED COMPOSITE - 1 SURF, ANTERIOR Dental Routine [address] arting 04/18/2025 documented as of this encounter Procedures Procedure Name Priority Date/Time Associated Diagnosis Comments NO CHARGE VISIT Routine 04/18/2025 9:00 AM EDT 8 DIL COMPOSITE FILLING Routine 04/18/2025 12:00 AM EDT documented in this encounter Visit Diagnoses Not on filedocumented in this encounter
--- NOTE | 2025-04-20 13:02 | ECG_ITS ---
Test Reason : pre op Blood Pressure : */* mmHG Vent. Rate : 64 BPM Atrial Rate : 64 BPM P-R Int : 144 ms QRS Dur : 76 ms QT Int : 426 ms P-R-T Axes : 62 42 -48 degrees QTcB Int : 439 ms Normal sinus rhythm Nonspecific ST and T wave abnormality Abnormal ECG No previous ECGs available Referred By: Angelita Olsen Electronically Signed By: UYEN PRESTON
--- OUTSIDE RECORDS SUMMARY | 2025-04-20 13:35 | XMS_ITS | Clinical Summary ---
Author Organization [facility] Address [address] [place] [address] Phone Care Team Providers Care Bristle Machine Operator Name Role Phone Arash Bolanos MD Primary Care Provider + Social History Tobacco Use Types Packs/Day Years Used Date Smoking Tobacco: Never Assessed Education Answer Date Recorded Are you interested in more education? Not on derrick e 12/19/2022 Are you concerned about learning? Not on file 12/19/2022 No 12/19/2022 No 12/19/2022 Digital Access Answer Date Recorded No 01/20/2023 No 01/20/2023 No 01/20/2023 Reliable internet access at home? Not on file 01/20/2023 Device with a working camera? Not on file Sex and Gender Information Value Date Recorded Sex Assigned at Not on file Legal Sex Male 8:02 AM EDT Gender Identity Not on file Sexual Orientation Not on file Plan of Treatment Health Maintenance Due Date Last Done Comments LIPID PANEL 1949 DEPRESSION SCREENING 1961 SMOKING Hx and SMOKELESS TOB ACCO SCREENING 1962 HEPATITIS C SCREENING 10/26/1967 COLOGUARD 1994 COLONOSCOPY 1994 COLORECTAL CANCER SCREENING 1994 FIT TEST 1994 FOBT 1994 SIGMOIDOSCOPY 1994 VIRTUAL COLONOSCOPY 1994 PNEUMOCOCCAL VACCINES (50+ y ears) (1 of 1 - PCV) 10/26/1999 ZOSTER VACCINES (1 of 2) 10/26/1999 Adult Td,Tdap Booster 01/06/2022 01/07/2012 COVID-19 VACCINE ( - 2023-2 5 season) 2024 RSV VACCINE (1 - 1-dose 75+ series) 2024 INFLUENZA VACCINE (#1) 2025 HEPATITIS A VACCINES Aged Out No long er eligible based on patient's age to complete this topic HIB VACCINES Aged Out No longer eligi ble based on patient's age to complete this topic MENINGOCOCCAL VACCINES (ACWY) Aged Out No longer eligible based on patient's age to complete this topic MENINGOCOCCAL VACCINES (B) Aged Out N o longer eligible based on patient's age to complete this topic Medical Devices Not on file Insurance MEDICARE PART A & B [facility] [employer] MEDICARE SUPPLEMENT MEDICARE PART A & B Member Subscriber Plan / Payer ( fective 2014-Present) Name:Dheeraj Vieyra Member ID:[id number] Relation to Subscriber:Self Name:Dheeraj Vieyra Subscriber ID:[id number] Payer ID:[id number] Group ID:Not on file Type:Medicare Address: [employer] [address] [employer] EXTENSION MEDICARE SUPPLEMENT MEDICARE PART A & B [employer] EXTENSION MEDICARE SUPPLEMENT MEDICARE PART A & B [employer] MEDICARE SUPPLEMENT MEDICARE PART A & B [employer] MEDICARE SUPPLEMENT MEDICARE PART A & B [facility] [employer] MEDICARE SUPPLEMENT MEDICARE PART A & B [facility] [employer] MEDICARE SUPPLEMENT MEDICARE PART A & B [facility] [employer] MEDICARE SUPPLEMENT MEDICARE PART A & B [facility] [employer] MEDICARE SUPPLEMENT Care Teams Bristle Machine Operator Relationship Specialty Start Date End Date Arash Bolanos MD PCP - General Internal Medicine 03/04/19 Additional Source Comments The information contained in this document represents components of the legal health record. It is not the complete legal health record.[facility]
--- OUTSIDE RECORDS SUMMARY | 2025-04-20 13:35 | XMS_ITS | Clinical Summary ---
Author Organization [facility] Address [facility] [place] [address] Care Team Providers Care Plasterer Maintenance Name Role Phone Angelita Olsen MD Primary Care Provider [phone] Allergies Active Allergy Reactions Criticality Noted Date [...] 1:00 PM EDT [place] [address] Александр Nguyen MD [facility] [place] [address] Health Maintenance Due Date Last Done Comments [...] Influenza standard series) 04/24/2025 Insurance [address] [place] [address] MEDICARE [employer] Care Teams Plasterer Maintenance Relationship Specialty Start Date End Date Angelita Olsen MD [address] [place] [address] [place] [address] PCP - General Internal Medicine 09/05/24
--- OUTSIDE RECORDS SUMMARY | 2025-04-20 13:35 | XMS_ITS | Encounter Summary ---
Author Organization [facility] Address [address] [facility] [address] [place] [address] Phone Care Team Providers Care Senior Software Quality Engineer Name Role Phone Arash Bolanos MD Primary Care Provider + Encounter Details Date Type Department Care Team (Late st Contact Info) Description 04/07/2019 Documentation [facility] Vascular Imaging & Intervention [address] [facility], 2nd Floor, [address] [place] [address] Jeison Davis MD [address] [facility] [address] [place] [address] [email or web address] Social History Tobacco Use Types Packs/Day [...] on filedocumented in this encounter Care Teams Senior Software Quality Engineer Relationship Specialty Start Date End Date Arash Bolanos MD PCP - General Internal Medicine 03/04/19 documented as of this encounter Additional Source Comments The information contained in this document represents components of the legal health record. It is not the complete legal health record.[facility]
--- OUTSIDE RECORDS SUMMARY | 2025-04-20 13:35 | XMS_ITS | Clinical Summary ---
Author Organization [employer] Address [address] [place] [address] [address] [place] [address] Care Team Providers Care Senior Programmer Name Role Phone Unavailable Primary Care Provider [...] by mouth in the morning. 01/09/2023 Active dutasteride (Avodart) 0.5 MG capsule Take 0.5 mg by mouth Once per day. Active Active Problems Problem Noted Date Diagnosed Date Dental caries 04/23/2023 Encounters Date Type Department Care Team Description 04/18/2025 9:00 AM EDT Office Visit [facility] [address] [place] [phone] Yoanna Talley LLD from Last 3 Months Social History Tobacco Use Types Packs/Day Years [...] Mass Index - - Plan of Treatment Upcoming Encounters Date Type Department Care Team (Late st Contact Info) Description 06/21/2025 7:30 AM EDT Office Visit [facility] DENTAL [address] [place] [phone] Yoanna Talley, LLD [address] [place] [address] Health Maintenance Due Date Last Done Comments [...] older (1 - 1-dose 75+ series) 2024 Influenza Vaccine (#1) 2025 Dental X-Ray: Full Mouth 04/16/2026 04/15/2023 Tobacco Screening 04/18/2026 04/18/2025 HIB Vaccines Aged Out No longer eligi [...] AM EDT 8 DIL COMPOSITE FILLING Routine 04/18/20 25 12:00 AM EDT PANORAMIC RADIOGRAPHIC IMAGE Routine 04/15/2023 11:00 AM EDT from Last 3 Months or Most Recently Relevant to Health Maintenance Insurance MEDICARE [facility]
== END ==
LOC: HO.CARD 12:55
PROVIDERS: PCP Internal Medicine; Visit Provider Internal Medicine
DX: Z01.818 Encounter for other preprocedural examination (principal)
CPT/HCPCS: 93005

== ENCOUNTER → 2025-04-20 13:02 | Outpatient (BNV) | payer MEDICARE, OTHER, SELFPAY | PROVIDERS: PCP Internal Medicine; Visit Provider Internal Medicine | DX: R94.31 Abnormal electrocardiogram [ECG] [EKG] (principal); Z01.810 Encounter for preprocedural cardiovascular examination | CPT/HCPCS: 93010 ==

== ENCOUNTER → 2025-04-26 15:18 | Outpatient (BNV) | payer MEDICARE, OTHER, SELFPAY | PROVIDERS: PCP Internal Medicine; Referring Provider Internal Medicine; Visit Provider Internal Medicine | DX: D75.1 Secondary polycythemia (principal) | CPT/HCPCS: 99204; G2211 ==

== ENCOUNTER 2025-05-10 13:00 | Outpatient (REF) | payer MEDICARE, OTHER, SELFPAY ==
--- OUTSIDE RECORDS SUMMARY | 2025-05-10 16:28 | XMS_ITS | Encounter Summary ---
Author Organization [facility] Address [address] [facility] [address] [place] [address] Phone Care Team Providers Care Payroll Associate Name Role Phone Arash Bolanos MD Primary Care Provider + Encounter Details Date Type Department Care Team (Late st Contact Info) Description 04/07/2019 Documentation [facility] Vascular Imaging & Intervention [address] [facility], 2nd Floor, [address] [place] [address] Jeison Davis MD [address] [facility] [address] [place] [address] [email or web address] Social History Tobacco Use Types Packs/Day [...] on filedocumented in this encounter Care Teams Payroll Associate Relationship Specialty Start Date End Date Arash Bolanos MD PCP - General Internal Medicine 03/04/19 documented as of this encounter Additional Source Comments The information contained in this document represents components of the legal health record. It is not the complete legal health record.[facility]
--- OUTSIDE RECORDS SUMMARY | 2025-05-10 16:28 | XMS_ITS | Clinical Summary ---
Author Organization [facility] Address [address] [place] [address] Phone Care Team Providers Care Calender Machine Operator Name Role Phone Arash Bolanos [...] 2) 10/26/1999 Adult Td,Tdap Booster 01/06/2022 01/07/2012 RSV VACCINE (1 - 1-dose 75+ series) 2024 INFLUENZA VACCINE (#1) 2025 COVID-19 VACCINE ( - 2023-2 5 season) 2025 HEPATITIS A VACCINES Aged Out No [...] file Insurance MEDICARE PART A & B [facility] EXTENSION MEDICARE SUPPLEMENT MEDICARE PART A & B Member Subscriber Plan / Payer ( fective 2014-Present) Name:Dheeraj Vieyra Member ID:[id number] Relation to Subscriber:Self Name:Dheeraj Vieyra Subscriber ID:[id number] Payer ID:[id number] Group ID:Not on file Type:Medicare Address: [employer] [address] [employer] EXTENSION MEDICARE SUPPLEMENT MEDICARE PART A & B [employer] EXTENSION MEDICARE SUPPLEMENT MEDICARE PART A & B [employer] MEDICARE SUPPLEMENT MEDICARE PART A & B [employer] MEDICARE SUPPLEMENT MEDICARE PART A & B [facility] EXTENSION MEDICARE SUPPLEMENT MEDICARE PART A & B [facility] EXTENSION MEDICARE SUPPLEMENT MEDICARE PART A & B [facility] EXTENSION MEDICARE SUPPLEMENT MEDICARE PART A & B [facility] EXTENSION MEDICARE SUPPLEMENT Care Teams Calender Machine Operator Relationship Specialty Start Date End Date Arash Bolanos MD PCP - General Internal Medicine 03/04/19 Additional Source Comments The information contained in this document represents components of the legal health record. It is not the complete legal health record.[facility]
--- OUTSIDE RECORDS SUMMARY | 2025-05-10 16:28 | XMS_ITS | Clinical Summary ---
Author Organization [facility] [place] [address] Care Team Providers Care Youth Court Judge Name Role Phone Angelita Olsen MD Primary Care Provider [phone] Allergies Active Allergy Reactions Criticality Noted Date [...] by mouth Daily at Noon. 12/28/2024 Active Encounters Date Type Department Care Team Description 05/01/2025 1:00 PM EDT [place] [phone] Александр Nguyen MD Left leg numbness 05/01/2025 External [place] [phone] Александр Nguyen MD 05/01/2025 Travel from Last 3 Months Social History Tobacco [...] Sign Reading Time Taken Comments Blood Pressure 165/84 05/01/2025 12:57 PM EDT Pt declined second reading Pulse 68 05/01/2025 12:57 PM EDT Temperature - - Respiratory Rate - - Oxygen Saturation 97% 05/01/2025 12: 57 PM EDT Inhaled Oxygen Concentration - - Weight 93.9 kg (207 lb) 05/01/2025 12:5 7 PM EDT Height 181.6 cm (5' 11.5 ) 05/01/2025 1 2:57 PM EDT Body Mass Index 28.47 05/01/2025 12:57 PM EDT Plan of Treatment Upcoming Encounters Date Type Department Care Team (Late st Contact Info) Description 08/31/2025 2:30 PM EST [place] [address] Pawan Thacker MD [facility] [place] [address] Health Maintenance Due Date Last Done Comments [...] 10/26/1999 Advance Directive 2004 AAA Screen 2014 RSV Vaccine (1 - 1-dose 75+ series) 2024 Covid-19 Vaccine (1 - season) 2025 Influenza (Flu) vaccine (1 o f 1 - Influenza standard series) 04/24/2025 Procedures Procedure Name Priority Date/Time Associated Diagnosis Comments MISC EXTERNAL CARDIOLOGY RESULT Routine 05/01/2025 2:04 PM EDT EXTERNAL CHEMISTRY LAB RESULTS Routine 04/26/2025 1:57 PM EDT EXTERNAL CHEMISTRY LAB RESULTS Routine 04/13/2025 2:00 PM EDT from Last 3 Months Results * External Cardiology Result (05/01/2025 2:04 PM EDT) Anatomical Region Laterality Modality Other Александр Nguyen MD EXTERNAL CARDIOLOGY RESULT F inal Result * External Chemistry Lab Results (04/26/2025 1:57 PM EDT) Only the most recent of2 resultswithin the time period is included. Александр Nguyen MD EXTERNAL LAB ORDERABLES Lian l Result from Last 3 Months Insurance [place]ICARE [place] [id number] [facility] Care Teams Youth Court Judge Relationship Specialty Start Date End Date Angelita Olsen MD [address] [place] [address] [place] [address] PCP - General Internal Medicine 09/05/24
--- OUTSIDE RECORDS SUMMARY | 2025-05-10 16:28 | XMS_ITS | Clinical Summary ---
Author Organization [email or web address] Address [address] [facility] 7t [place] [address] Care Team Providers Care Rope Twisting Machine Operator Name Role Phone Unavailable Primary Care [...] Description 04/18/2025 9:00 AM EDT Office Visit [facility] DENT[facility] [address] [place] [phone] Yoanna Talley LLD from Last 3 Months [...] Upcoming Encounters Date Type Department Care Team ([facility] st Contact Info) Description 06/21/2025 7:30 AM EDT Office Visit [facility] DENTAL [address] [place] [phone] Yoanna Talley Murali [address] [place] [address] Health Maintenance Due Date Last Done Comments [...] - T d or Tdap) 01/06/2022 01/07/2012 RSV Patients and Pa tients Aged 60 years or older (1 - 1-dose 75+ series) 2024 COVID-19 Vaccine (1 - 2023-2 5 season) 2025 Influenza Vaccine (#1) 2025 Dental X-Ray: Full [...] EDT 8 DIL COMPOSITE FILLING Routine 04/18/20 12:00 AM EDT PANORAMIC RADIOGRAPHIC IMAGE Routine 04/15/2023 11:00 AM EDT from Last 3 Months or Most Recently Relevant to Health Maintenance Insurance [place] [address] [place] [id number] [facility] PAT[place] [id number]
== END 2025-05-10 13:01 | disposition home or self-care (01) ==
LOC: HO.BBR 13:00
PROVIDERS: PCP Internal Medicine; Visit Provider Internal Medicine
DX: D75.1 Secondary polycythemia (principal)
CPT/HCPCS: 85014; 85018; 99195

== ENCOUNTER 2025-05-24 13:01 | Outpatient (REF) | payer MEDICARE, OTHER, SELFPAY ==
--- OUTSIDE RECORDS SUMMARY | 2025-05-24 14:18 | XMS_ITS | Encounter Summary ---
Author Organization [facility] Address [address] [facility] [address] [place] [address] Phone Care Team Providers Care On Air Personality Name Role Phone Arash Bolanos MD Primary Care Provider + Encounter Details Date Type Department Care Team (Late st Contact Info) Description 04/07/2019 Documentation [facility] [place] Vascular Imaging & Intervention [address] [facility], 2nd Floor, [address] [place] [address] Jeison Davis MD [address] [facility] [address] [place] [address] [email or web address] Social History Tobacco Use Types Packs/Day [...] on filedocumented in this encounter Care Teams On Air Personality Relationship Specialty Start Date End Date Arash Bolanos MD PCP - General Internal Medicine 03/04/19 documented as of this encounter Additional Source Comments The information contained in this document represents components of the legal health record. It is not the complete legal health record.[facility]
--- OUTSIDE RECORDS SUMMARY | 2025-05-24 14:18 | XMS_ITS | Clinical Summary ---
Author Organization [facility] [address] Care Team Providers Care Packing And Final Assembly Supervisor Name Role Phone Angelita Olsen MD Primary Care Provider [phone] Allergies Active Allergy Reactions Criticality Noted Date [...] 1:00 PM EDT [place] [phone] Александр Nguyen MD Left leg numbness 05/01/2025 [place] [phone] Александр Nguyen MD 05/01/2025 Travel from Last [...] 2:30 PM EST [place] [address] Pawan Thacker MD [facility] [place] [address] Health Maintenance Due Date Last Done Comments [...] Last 3 Months Insurance MEDICARE [place] [id number] [facility] Care Teams Packing And Final Assembly Supervisor Relationship Specialty Start Date End Date Angelita Olsen MD [address] [place] [address] [place] [address] PCP - General Internal Medicine 09/05/24
--- OUTSIDE RECORDS SUMMARY | 2025-05-24 14:18 | XMS_ITS | Clinical Summary ---
Author Organization [facility] Address [address] [place] [address] Phone Care Team Providers Care Landing Worker Name Role Phone Arash Bolanos MD Primary [...] file Insurance MEDICARE PART A & B [facility] MEDICARE SUPPLEMENT MEDICARE PART A & B Member Subscriber Plan / Payer ( fective 2014-Present) Name:Dheeraj Vieyra Member ID:[id number] Relation to Subscriber:Self Name:Dheeraj Vieyra Subscriber ID:[id number] Payer ID:[id number] Group ID:Not on file Type:Medicare Address: [employer] [address] [employer] EXTENSION MEDICARE SUPPLEMENT MEDICARE PART A & B [employer] MEDICARE SUPPLEMENT MEDICARE PART A & B [employer] MEDICARE SUPPLEMENT MEDICARE PART A & B [employer] MEDICARE SUPPLEMENT MEDICARE PART A & B [facility] MEDICARE SUPPLEMENT MEDICARE PART A & B [facility] MEDICARE SUPPLEMENT MEDICARE PART A & B [facility] MEDICARE SUPPLEMENT MEDICARE PART A & B [facility] MEDICARE SUPPLEMENT Care Teams Landing Worker Relationship Specialty Start Date End Date Arash Bolanos MD PCP - General Internal Medicine 03/04/19 Additional Source Comments The information contained in this document represents components of the legal health record. It is not the complete legal health record.[facility]
== END 2025-05-24 13:02 | disposition home or self-care (01) ==
LOC: HO.BBR 13:01
PROVIDERS: PCP Internal Medicine; Visit Provider Internal Medicine
DX: D75.1 Secondary polycythemia (principal)
CPT/HCPCS: 85018; 99195

== ENCOUNTER 2025-06-07 14:12 | Outpatient (REF) | payer MEDICARE, OTHER, SELFPAY ==
--- OUTSIDE RECORDS SUMMARY | 2025-06-07 18:00 | XMS_ITS | Clinical Summary ---
Author Organization [facility] [place] [address] Care Team Providers Care Rework Operator Name Role Phone Angelita Olsen MD Primary Care Provider [phone] Allergies Active Allergy Reactions Criticality Noted Date [...] 1:00 PM EDT [place] [phone] Александр Nguyen MD Left leg numbness 05/01/2025 External [place] [phone] Александр Nguyen MD 05/01/2025 Travel from Last [...] 2:30 PM EST [place] [address] Pawan Thacker MD [facility] [place] [address] Health Maintenance Due Date Last Done Comments [...] Procedure Name Priority Date/Time Associated Diagnosis Comments CT SCAN (SCAN) 05/12/2025 12:00 AM EDT MIS EXTERNAL CARDIOLOGY RESULT Routine 05/01/2025 2:04 PM EDT EXTERNAL CHEMISTRY LAB RESULTS Routine 04/26/2025 1:57 PM EDT EXTERNAL CHEMISTRY LAB RESULTS Routine 04/13/2025 2:00 PM EDT from Last 3 Months Results * Scan Doc: CT Scan (05/12/2025 12:00 AM EDT) Anatomical Region Laterality Modality Other Narrative 05/12/2025 12:00 AM EDT Ordered by an unspecified provider. us Scanning Provider MEDIA MGR SCAN EXT ORDR/RSLT F inal Result * External Cardiology Result (05/01/2025 2:04 PM EDT) Anatomical Region Laterality Modality Other Александр Nguyen MD EXTERNAL CARDIOLOGY RESULT F inal Result * External Chemistry Lab Results (04/26/2025 1:57 PM EDT) Only the most recent of2 resultswithin the time period is included. Александр Nguyen MD EXTERNAL LAB ORDERABLES Lian l Result from Last 3 Months [place] [address] [place] [address] MEDICARE [facility] Care Teams Rework Operator Relationship Specialty Start Date End Date Angelita Olsen MD [address] [place] [address] [place] [address] PCP - General Internal Medicine 09/05/24
--- OUTSIDE RECORDS SUMMARY | 2025-06-07 18:00 | XMS_ITS | Encounter Summary ---
Author Organization [facility] Address [address] [facility] [address] [place] [address] Phone Care Team Providers Care Automotive Tire Tester Name Role Phone Arash Bolanos MD Primary Care Provider + Encounter Details Date Type Department Care Team (Late st Contact Info) Description 04/07/2019 Documentation [facility] [place] [place] Vascular Imaging & Intervention [address] [facility], 2nd Floor, [address] [place] [address] Jeison Davis MD [address] [facility] [address] [place] [address] [email or web address] Social History Tobacco Use Types Packs/Day [...] on filedocumented in this encounter Care Teams Automotive Tire Tester Relationship Specialty Start Date End Date Arash Bolanos MD PCP - General Internal Medicine 03/04/19 documented as of this encounter Additional Source Comments The information contained in this document represents components of the legal health record. It is not the complete legal health record.[facility]
--- OUTSIDE RECORDS SUMMARY | 2025-06-07 18:00 | XMS_ITS | Clinical Summary ---
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 Retinal detachment 06/01/2025 Hypertension 06/01/2025 Hyperlipidemia 06/01/2025 Hyperglycemia 06/01/2025 Esophageal reflux 06/01/2025 Diverticulosis 06/01/2025 Hiatal hernia 06/01/2025 Benign prostatic hyperplasia 06/01/2025 Dental caries 04/23/2023 Encounters Date Type Department Care Team Description 06/01/2025 10:15 AM EDT Office Visit [facility] [address] [place] [address] Daniel Hill RDH 05/31/2025 Travel 04/18/2025 9:00 AM EDT Office Visit [address] [address] Yoanna Talley LLD from Last 3 Months [...] Sign Reading Time Taken Comments Blood Pressure 150/87 06/01/2025 10:19 AM EDT Pulse 80 06/01/2025 10:19 AM EDT Temperature 36.8 C (98.3 F) 04/18/2025 9:04 AM EDT Respiratory Rate - - Oxygen Saturation - - Inhaled Oxygen Concentration - - Weight - - Height - - Body Mass Index - - Plan of Treatment Upcoming Encounters Date Type Department Care Team (Late st Contact Info) Description 06/21/2025 7:30 AM EDT Office Visit [address] [phone] Yoanna Talley LLD [address] [place] [id number] 08/03/2025 12:30 PM EST Office Visit [address] [address] Yoanna Talley LLD [address] [place] [address] 11/30/2025 10:15 AM EDT Office Visit [address] [phone] Daniel Hill, RDH [address] [place] [address] Health Maintenance Due Date Last Done Comments CT Colonography 1949 Colonoscopy 1949 Colorectal Cancer Screening 1949 Dental Prophylaxis 1949 Depression Screening 1949 FIT DNA/Cologuard 1949 FIT 1949 FOBT 1949 Lipid Panel 1949 SDOH Screening 1949 Sigmoidoscopy 1949 Alcohol/Substance Use Screening 1961 Hepatitis C Screening 10/26/1967 Pneumococcal Vaccine: 50+ Years (1 of 2 - PCV) 1968 Lung Cancer Screening 10/26/1999 Zoster Vaccines (1 of 2) 10/26/1999 DTaP/Tdap/Td Vaccines (2 - T d or Tdap) 01/06/2022 01/07/2012 RSV Patients and Patients Aged 60 years or older (1 - 1-dose 75+ series) 2024 COVID-19 Vaccine (1 - 2023-2 5 season) 2025 Influenza Vaccine (#1) 2025 Dental Oral Exam 12/01/2025 06/01/2025 Tobacco Screening 06/01/2026 06/01/2025 Dental X-Ray: Bitewings 06/02/2026 06/01/2025 Dental X-Ray: Full Mouth 06/02/2028 025, 04/15/2023 HIB Vaccines Aged Out No longer [...] Procedure Name Priority Date/Time Associated Diagnosis Comments INTRAORAL - COMPLETE SERIES OF RADIOGRAPHIC IMAGES Routine 06/01/2025 10:15 AM EDT COMPREHENSIVE ORAL EVALUATION - NEW OR ESTABLISHED PATIENT Routine 06/01/2025 10:15 AM EDT 20 MOD COMPOSITE FILLING Routine 025 12:00 AM EDT 21 DO COMPOSITE FILLING Routine 06/01/20 25 12:00 AM EDT 28 O AMALGAM FILLING Routine 06/01/2025 12:00 AM EDT 31 O AMALGAM FILLING Routine 06/01/2025 12:00 AM EDT 6 ROOT CANAL Routine 06/01/2025 12:00 AM EDT 11 ROOT CANAL Routine 06/01/2025 12:00 AM EDT NO CHARGE VISIT Routine 04/18/2025 9:00 AM EDT 8 DIL COMPOSITE FILLING Routine 04/18/20 12:00 AM EDT from Last 3 Months Insurance MEDICARE [facility]
--- OUTSIDE RECORDS SUMMARY | 2025-06-07 18:00 | XMS_ITS | Clinical Summary ---
Author Organization [facility] Address [address] [place] [phone] Phone Care Team Providers Care Cone Trucker Name Role Phone Arash Bolanos MD Primary [...] VACCINE (#1) 2025 COVID-19 VACCINE ( - 2024-2 6 season) 2025 HEPATITIS A VACCINES Aged Out [...] file Insurance MEDICARE PART A & B [facility] [employer] MEDICARE SUPPLEMENT MEDICARE PART A & B Member Subscriber Plan / Payer ( fective 2014-Present) Name:Dheeraj Vieyra Member ID:[id number] Relation to Subscriber:Self Name:Dheeraj Vieyra Subscriber ID:[id number] Payer ID:[id number] Group ID:Not on file Type:Medicare Address: [employer] [address] [employer] EXTENSION MEDICARE SUPPLEMENT MEDICARE PART A & B [employer] MEDICARE SUPPLEMENT MEDICARE PART A & B [email or web address] MEDICARE SUPPLEMENT MEDICARE PART A & B [email or web address] MEDICARE SUPPLEMENT MEDICARE PART A & B [facility] [employer] MEDICARE SUPPLEMENT MEDICARE PART A & B [facility] MEDICARE SUPPLEMENT MEDICARE PART A & B [facility] MEDICARE SUPPLEMENT MEDICARE PART A & B [facility] [employer] MEDICARE SUPPLEMENT Care Teams Cone Trucker Relationship Specialty Start Date End Date Arash Bolanos MD PCP - General Internal Medicine 03/04/19 Additional Source Comments The information contained in this document represents components of the legal health record. It is not the complete legal health record.[facility]
== END 2025-06-07 14:13 | disposition home or self-care (01) ==
LOC: HO.BBR 14:12
PROVIDERS: PCP Internal Medicine; Visit Provider Internal Medicine
DX: D75.1 Secondary polycythemia (principal)
CPT/HCPCS: 85014; 85018; 99195

== ENCOUNTER 2025-06-28 13:06 | Outpatient (REF) | payer MEDICARE, OTHER, SELFPAY ==
--- OUTSIDE RECORDS SUMMARY | 2025-06-28 15:53 | XMS_ITS | Encounter Summary ---
Author Organization [facility] Address [address] [facility] [address] [place] [phone] Phone Care Team Providers Care Oncology Admin Name Role Phone Arash Bolanos MD Primary Care Provider + Encounter Details Date Type Department Care Team (Late st Contact Info) Description 04/07/2019 Documentation [facility] Vascular Imaging & Intervention [address] [facility], 2nd Floor, [address] [place] [address] Jeison Davis MD [address] [facility] [address] [place] [address] [email or web address] Social History Tobacco Use Types Packs/Day [...] on filedocumented in this encounter Care Teams Oncology Admin Relationship Specialty Start Date End Date Arash Bolanos MD PCP - General Internal Medicine 03/04/19 documented as of this encounter Additional Source Comments The information contained in this document represents components of the legal health record. It is not the complete legal health record.[facility]
--- OUTSIDE RECORDS SUMMARY | 2025-06-28 15:53 | XMS_ITS | Clinical Summary ---
Author Organization [facility] Address [address] [place] [phone] Phone Care Team Providers Care Fire Control Assistant Name Role Phone Arash Bolanos MD Primary [...] file Insurance MEDICARE PART A & B [facility] EXTENSION MEDICARE SUPPLEMENT MEDICARE PART A & B Member Subscriber Plan / Payer ( fective 2014-Present) Name:Dheeraj Vieyra Member ID:[id number] Relation to Subscriber:Self Name:Dheeraj Vieyra Subscriber ID:[id number] Payer ID:[id number] Group ID:Not on file Type:Medicare Address: [employer] [address] [employer] EXTENSION MEDICARE SUPPLEMENT MEDICARE PART A & B [employer] EXTENSION MEDICARE SUPPLEMENT MEDICARE PART A & B [employer] MED[employer]ARE SUPPLEMENT MEDICARE PART A & B [employer] MED[employer]ARE SUPPLEMENT MEDICARE PART A & B [facility] EXTENSION MEDICARE SUPPLEMENT MEDICARE PART A & B [facility] EXTENSION MEDICARE SUPPLEMENT MEDICARE PART A & B [facility] [employer]ION MEDICARE SUPPLEMENT MEDICARE PART A & B [facility] [employer] MEDICARE SUPPLEMENT Care Teams Fire Control Assistant Relationship Specialty Start Date End Date Arash Bolanos MD PCP - General Internal Medicine 03/04/19 Additional Source Comments The information contained in this document represents components of the legal health record. It is not the complete legal health record.[facility]
--- OUTSIDE RECORDS SUMMARY | 2025-06-28 15:53 | XMS_ITS | Clinical Summary ---
Author Organization [facility] [place] [address] Care Team Providers Care Spinning Supervisor Name Role Phone Angelita Olsen MD Primary Care Provider [phone] Allergies Active Allergy Reactions Criticality Noted Date [...] 1:00 PM EDT [place] [phone] Александр Nguyen MD Left leg numbness 05/01/2025 External [place] [phone] Александр Nguyen MD 05/01/2025 Travel from Last [...] 2:30 PM EST [place] [address] Pawan Thacker MD [facility] [place] [address] Health Maintenance Due Date Last Done Comments [...] Procedure Name Priority Date/Time Associated Diagnosis Comments MRI/MRA SCAN 05/12/2025 12:[address] SCAN (SCAN) 05/12/2025 12:00 AM EDT [facility] EXTERNAL CARDIOLOGY RESULT Routine 05/01/2025 2:04 PM EDT EXTERNAL CHEMISTRY LAB RESULTS Routine 04/26/2025 1:57 PM EDT EXTERNAL CHEMISTRY LAB RESULTS Routine 04/13/2025 2:00 PM EDT from Last 3 Months Results * Scan Doc: MRI/MRA (05/12/2025 12:00 AM EDT) Anatomical Region Laterality Modality Other Narrative 05/12/2025 12:00 AM EDT Ordered by an unspecified provider. us Scanning Provider MEDIA MGR SCAN EXT ORDR/RSLT F inal Result * Scan Doc: CT Scan (05/12/2025 12:00 AM EDT) Anatomical Region Laterality Modality Other Narrative 05/12/2025 12:00 AM EDT Ordered by an unspecified provider. us Scanning Provider MEDIA MGR SCAN EXT ORDR/RSLT F inal Result * External Cardiology Result (05/01/2025 2:04 PM EDT) Anatomical Region Laterality Modality Other us Александр Nguyen MD EXTERNAL CARDIOLOGY RESULT F inal Result * External Chemistry Lab Results (04/26/2025 1:57 PM EDT) Only the most recent of2 resultswithin the time period is included. us Александр Nguyen MD EXTERNAL LAB ORDERABLES Lian l Result from Last 3 Months Insurance [id number] [place] [address] MEDICARE MD JAYJAY [id number] [facility] [id number] Care Teams Spinning Supervisor Relationship Specialty Start Date End Date Angelita Olsen MD [address] [place] [address] [place] [address] PCP - General Internal Medicine 09/05/24
--- OUTSIDE RECORDS SUMMARY | 2025-06-28 15:53 | XMS_ITS | Clinical Summary ---
Author Organization [employer] Address [address] [facility] 7[address] [place] [address] Care Team Providers Care Cvir Tech Name Role Phone Unavailable Primary Care Provider [...] [facility] [address] [place] [address] Daniel Hill RDH 05/31/2025 Travel 04/18/2025 9:00 AM EDT Office Visit [address] [address] Yoanna Talley LLD from Last 3 Months [...] Care Team (Late st Contact Info) Description 08/03/2025 12:30 PM EST Office Visit [address] [address] Yoanna Talley LLD [address] [place] [address] 08/30/2025 9:00 AM EST Office Visit [address] [address] Yoanna Talley LLD [address] [place] [address] 11/30/2025 10:15 AM EDT Office Visit [address] [address] Daniel Hill, RDH [address] [place] [address] Health Maintenance Due Date Last Done Comments [...] EDT from Last 3 Months Insurance MEDICARE [facility]
== END 2025-06-28 13:07 | disposition home or self-care (01) ==
LOC: HO.BBR 13:06
PROVIDERS: PCP Internal Medicine; Visit Provider Internal Medicine
DX: D75.1 Secondary polycythemia (principal)
CPT/HCPCS: 85014; 85018; 99195

== ENCOUNTER 2025-08-01 11:52 | Outpatient (REF) | payer MEDICARE, OTHER, SELFPAY | END 2025-08-01 11:53 | disposition home or self-care (01) | LOC: HO.BBR 11:52 | PROVIDERS: PCP Internal Medicine; Visit Provider Internal Medicine | DX: D75.1 Secondary polycythemia (principal) | CPT/HCPCS: 85018; 99195 ==